=== PATIENT | male | born 1930 | race Caucasian/White ===

== ENCOUNTER 2018-02-15 13:34 | Observation (INO) | payer OTHER ==
[2018-02-15 15:05] LABS: Absolute Monocytes 1.3 K/uL (0.1-1.3); Absolute Neutrophil 12.9 K/uL (1.8-8.0); Basophils % 0.5 % (0-1.3); Eosinophils % 2.5 % (0-4.4); Hematocrit 35.6 % (39.6-49.0); MCH 32.3 pg (27.0-35.0); MCV 95.6 fL (80-100); MPV 9.2 fL (7.6-11.3); Monocytes % 7.5 % (3.3-12.3); RBC Red Blood Cell Count 3.72 M/uL (4.33-5.43)
--- NOTE | 2018-02-15 15:20 | RAD REPORT ---
EXAM DESCRIPTION: VAS - Extremity Venous Uni Ltd - 02/15/2018 2:34 pm CLINICAL HISTORY: Leg pain and swelling COMPARISON: None. TECHNIQUE: Real-time sonographic evaluation of the left lower extremity deep venous system was perfo rmed. FINDINGS: Normal compressibility, flow augmentation, phasic flow and spontaneous flow are identified in the left lower extremity common femoral, superficial femoral, popliteal and posterior tibial deep veins. No intraluminal filling defects seen. IMPRESSION: No DVT in the left lower extremity.
[2018-02-15] MEDS ORDERED: CLINDAMYCIN 900MG/D5W 900 MG/50 ML BAG IV ONE (15:22)
[2018-02-15] MEDS ORDERED: ACETAMINOPHEN 500 MG TAB ONE (15:22)
[2018-02-15 15:34] LABS: Albumin 3.3 g/dL (3.4-5.0); Bilirubin Direct 0.3 mg/dL (0-0.2); Bilirubin Total 1.1 mg/dL (0.2-1.0); Potassium 3.8 mmol/L (3.5-5.1); Protein, Total 6.9 g/dL (6.4-8.2)
--- NOTE | 2018-02-15 16:25 | EDPHYS ---
Physician Documentation [facility] Name: Paul Evangelista Age: 87 yrs Sex: Male : 1930 Arrival Date: 02/15/2018 Time: 13:38 Bed 8 Private MD: Sam Lacy V ED Physician Thomas Alvarenga HPI: 02/15 16:08 This 87 yrs old Male presents to ER via Wheelchair with complaints of wa Possible Blood Clot. 16:08 The patient presents with pain, that is acute, swelling, tenderness. The complaints wa affect the left lower leg. Context: The problem was sustained at home, denies injury. c/o redness, swelling, increased warmth, and pain. Onset: The symptoms/episode began/occurred 3 day(s) ago. Modifying factors: The symptoms are alleviated by nothing. the symptoms are aggravated by nothing. Associated signs and symptoms: Pertinent positives: swelling, warmth, of the left lower leg, below the calf level, Pertinent negatives calf tenderness, fever, nausea, numbness, rash, vomiting. Treatment prior to arrival includes: no previous treatment. Severity of symptoms: At their worst the symptoms were moderate, in the emergency department the symptoms are actually worse. The patient has not experienced similar symptoms in the past. The patient has not recently seen a physician, the patient's primary care provider is Dr. lacy. Historical: - Allergies: 14:11 Ciprofloxacin; ph - Home Meds: 14:11 tamsulosin 0.4 mg oral cp24 1 cap once daily [Active]; furosemide 80 mg Oral tab 1 tab ph once daily [Active]; metoprolol succinate 50 mg oral Tb24 1 tab once daily [Active]; spironolactone 25 mg Oral tab 0.5 tab once daily [Active]; calcitriol 0.5 mcg oral cap 1 cap once daily [Active]; clopidogrel 75 mg oral tab 1 tab once daily [Active]; simvastatin 20 mg Oral tab 1 tab once daily [Active]; Humalog Sub-Q [Active]; Lantus Sub-Q [Active]; - PMHx: 14:11 Diabetes - IDDM; CHF; Hypertension; ph - Immunization history:: Adult Immunizations up to date. - Social history:: Smoking status: Patient/guardian denies using tobacco. - Family history:: not pertinent. - Ebola Screening: : No symptoms or risks identified at this time. - Hospitalizations: : No recent hospitalization is reported. ROS: 16:11 Constitutional: Negative for fever, chills, and weight loss, Eyes: Negative for injury, wa pain, redness, and discharge, ENT: Negative for injury, pain, and discharge, Neck: Negative for injury, pain, and swelling, Cardiovascular: Negative for chest pain, palpitations, and edema, Respiratory: Negative for shortness of breath, cough, wheezing, and pleuritic chest pain, Abdomen/GI: Negative for abdominal pain, nausea, vomiting, diarrhea, and constipation, Back: Negative for injury and pain, : Negative for injury, bleeding, discharge, and swelling, Neuro: Negative for headache, weakness, numbness, tingling, and seizure, Psych: Negative for depression, anxiety, suicide ideation, homicidal ideation, and hallucinations. 16:11 MS/extremity: Positive for erythema, pain, swelling, tenderness, of the left lower leg , Negative for injury or acute deformity, ecchymosis. 16:11 Skin: Positive for erythema, swelling, of the left lower leg, below the calf. 16:11 All other systems are negative. Exam: 16:18 Constitutional: This is a well developed, well nourished patient who is awake, alert, wa and in no acute distress. Head/Face: Normocephalic, atraumatic. Eyes: Pupils equal round and reactive to light, extra-ocular motions intact. Lids and lashes normal. Conjunctiva and sclera are non-icteric and not injected. Cornea within normal limits. Periorbital areas with no swelling, redness, or edema. ENT: Nares patent. No nasal discharge, no septal abnormalities noted. Tympanic membranes are normal and external auditory canals are clear. Oropharynx with no redness, swelling, or masses, exudates, or evidence of obstruction, uvula midline. Mucous membranes moist. Neck: Trachea midline, no thyromegaly or masses palpated, and no cervical lymphadenopathy. Supple, full range of motion without nuchal rigidity, or vertebral point tenderness. No Meningismus. Chest/axilla: Normal chest wall appearance and motion. Nontender with no deformity. No lesions are appreciated. Cardiovascular: Regular rate and rhythm with a normal S1 and S2. No gallops, murmurs, or rubs. Normal PMI, no JVD. No pulse deficits. Respiratory: Lungs have equal breath sounds bilaterally, clear to auscultation and percussion. No rales, rhonchi or wheezes noted. No increased work of breathing, no retractions or nasal flaring. Abdomen/GI: Soft, non-tender, with normal bowel sounds. No distension or tympany. No guarding or rebound. No evidence of tenderness throughout. Back: No spinal tenderness. No costovertebral tenderness. Full range of motion. Neuro: Awake and alert, GCS 15, oriented to person, place, time, and situation. Cranial nerves II-XII grossly intact. Motor strength 5/5 in all extremities. Sensory grossly intact. Cerebellar exam normal. Normal gait. Psych: Awake, alert, with orientation to person, place and time. Behavior, mood, and affect are within normal limits. 16:18 Musculoskeletal/extremity: Extremities: grossly normal except: noted in the left lower leg, below the level of the calf: erythema, pain, swelling, tenderness. Vital Signs: 14:07 BP 158 / 64; Pulse 65; Resp 18; Temp 98.6; Pulse Ox 96% on R/A; Weight 90.72 kg; Height ph 5 ft. 9 in. (175.26 cm); 15:07 BP 160 / 44; Pulse 62; Resp 17; Pulse Ox 100% on R/A; dh3 16:01 BP 147 / 51; Pulse 56; Resp 15; Pulse Ox 97% on R/A; dh3 17:18 BP 144 / 83; Pulse 58; Resp 16; Pulse Ox 95% on R/A; sv 14:07 Body Mass Index 29.53 (90.72 kg, 175.26 cm) ph MDM: 14:24 Patient medically screened. wa 16:18 Differential diagnosis: symptoms consistent with cellulitis. will r/o DVT, although wa less likely. Data reviewed: vital signs, nurses notes, lab test result(s). Test interpretation: by ED physician or midlevel provider: labs noted for renal insufficiency, hyperglycemia. elevated wbc. Response to treatment: the patient's symptoms have mildly improved after treatment. Physician consultation: Sam Lacy MD was called at 16:23. Admission orders: after a detailed discussion of the patient's condition and case, the admit orders are written by me. 16:26 Special discussion: dr. Lacy advised rocephin instead of clindamycin. 02/15 14:24 Order name: Glucose, Ancillary Testing; Complete Time: 15:59 EDMS 02/15 14:47 Order name: Basic Metabolic Panel; Complete Time: 15:59 co 02/15 14:47 Order name: CBC with Diff; Complete Time: 15:59 co 02/15 14:47 Order name: Hepatic Function; Complete Time: 15:59 co 02/15 14:47 Order name: Urine Microscopic Only co 02/15 14:47 Order name: Blood Culture Adult (2) 02/15 14:20 Order name: US Extremity Venous Unilateral Ltd; Complete Time: 15:59 snw 02/15 16:37 Order name: Basic Metabolic Panel EDMS 02/15 16:37 Order name: Basic Metabolic Panel EDMS 02/15 16:37 Order name: CBC with Automated Diff EDMS 02/15 16:37 Order name: CBC with Automated Diff EDMS 02/15 14:47 Order name: IV Saline Lock; Complete Time: 14:51 co 02/15 14:47 Order name: Labs collected and sent; Complete Time: 14:51 co 02/15 16:37 Order name: Consistent Carb (ADA) 1800 Stas EDMS Administered Medications: 15:27 Drug: Tylenol 500 mg {Note: Pt wanted to take 1 tab at this time.} Route: PO; sv 15:28 Drug: Clindamycin 900 mg Route: IVPB; Infused Over: 30 mins; Site: right antecubital; sv 15:57 Follow up: Response: No adverse reaction; IV Status: Completed infusion; IV Intake: 50mlsv 16:31 CANCELLED (Duplicate Order): Rocephin - (cefTRIAXone) 1 grams IVPB once over 30 mins; sv (mix in 50 mL NS) 16:40 Drug: Rocephin 1 grams Route: IV; Rate: calculated rate; Site: right antecubital; sg 16:45 Follow up: Response: No adverse reaction; IV Status: Completed infusion; IV Intake: 10mlsv 16:45 Drug: Tylenol 500 mg Route: PO; sg 17:00 Follow up: Response: No adverse reaction sv Point of Care Testing: Blood Glucose: 14:22 Blood Glucose: 181 mg/dL; sv Ranges: Critical Glucose Levels:Adult <50 mg/dl or >400 mg/dl <40 mg/dl or >180 mg/dl Disposition: 02/15/18 16:25 Hospitalization ordered by Sam Lacy for Observation. Preliminary diagnosis is Acute Left Lower Extremity Cellulitis. - Bed requested for Telemetry/MedSurg (observation). - Status is Observation. sv - Condition is Stable. - Problem is new. - Symptoms have improved. UTI on Admission? No Signatures: Dispatcher [employer] EDMS Bisi Broussard RN RICK Ling Encarnacion RN RN Rogelio Pitts RN RN Charlene Zuniga RN RN [facility] CambridgeThomas clay MD MD co Corrections: (The following items were deleted from the chart) 16:31 16:25 Rocephin - (cefTRIAXone) 1 grams IVPB once over 30 mins; (mix in 50 mL NS) sv ordered. co 17:10 16:25 Hospitalization Ordered by Sam Lacy MD for Observation. Preliminary diagnosis dw is Acute Left Lower Extremity Cellulitis. Bed requested for Telemetry/MedSurg (observation). Status is Observation. Condition is Stable. Problem is new. Symptoms have improved. UTI on Admission? No. co 18:15 17:10 02/15/2018 16:25 Hospitalization Ordered by Sam Lacy MD for Observation. sv Preliminary diagnosis is Acute Left Lower Extremity Cellulitis. Bed requested for Telemetry/MedSurg (observation). Status is Observation. Condition is Stable. Problem is new. Symptoms have improved. UTI on Admission? No. dw
--- NOTE | 2018-02-15 16:25 | ER ---
Nurse's Notes [facility] Name: Paul Evangelista Age: 87 yrs Sex: Male : 1930 Arrival Date: 02/15/2018 Time: 13:38 Bed 8 Private MD: Sam Lacy V Diagnosis: Acute Left Lower Extremity Cellulitis Presentation: 02/15 14:04 Presenting complaint: states: " We are scared that he may have a blood clot. His ph leg is really red and painful." Pt reports pain to LLleg, redness and swelling noted to L lower leg, ankle, and foot, warm to touch, pt denies fever, SOB or chest pain, reports that symptoms began on Tuesday. Transition of care: patient was not received from another setting of care. Onset of symptoms was February 15, 2018. Risk Assessment: Do you want to hurt yourself or someone else? Patient reports no desire to harm self or others. Initial Sepsis Screen: Does the patient meet any 2 criteria? No. Patient's initial sepsis screen is negative. Care prior to arrival: None. 14:04 Method Of Arrival: Wheelchair ph 14:04 Acuity: NAVYA 3 ph 14:15 Initial Sepsis Screen: Does the patient have a suspected source of infection? Yes: Skin sv breakdown/wound. Historical: - Allergies: 14:11 Ciprofloxacin; ph - Home Meds: 14:11 tamsulosin 0.4 mg oral cp24 1 cap once daily [Active]; furosemide 80 mg Oral tab 1 tab ph once daily [Active]; metoprolol succinate 50 mg oral Tb24 1 tab once daily [Active]; spironolactone 25 mg Oral tab 0.5 tab once daily [Active]; calcitriol 0.5 mcg oral cap 1 cap once daily [Active]; clopidogrel 75 mg oral tab 1 tab once daily [Active]; simvastatin 20 mg Oral tab 1 tab once daily [Active]; Humalog Sub-Q [Active]; Lantus Sub-Q [Active]; - PMHx: 14:11 Diabetes - IDDM; CHF; Hypertension; ph - Immunization history:: Adult Immunizations up to date. - Social history:: Smoking status: Patient/guardian denies using tobacco. - Family history:: not pertinent. - Ebola Screening: : No symptoms or risks identified at this time. - Hospitalizations: : No recent hospitalization is reported. Screenin:15 Abuse screen: Denies threats or abuse. Denies injuries from another. Nutritional sv screening: No deficits noted. Tuberculosis screening: No symptoms or risk factors identified. Fall Risk None identified. Assessment: 14:15 General: Appears in no apparent distress. uncomfortable, Behavior is calm, cooperative, sv appropriate for age. Pain: Complains of pain in lateral aspect of left calf, left lateral ankle, lateral aspect of left foot, left calf, left Achilles, left heel, medial aspect of left calf, left medial ankle, medial aspect of left foot, left johnson, anterior aspect of left ankle and dorsum of left foot Pain currently is 8 out of 10 on a pain scale. Pain began 2-3 days ago. Is intermittent, Aggravated by touch. Neuro: Level of Consciousness is awake, alert, obeys commands, Oriented to person, place, time, situation, Moves all extremities. Full function Speech is normal. Respiratory: Respiratory effort is even, unlabored, Respiratory pattern is regular, symmetrical. Derm: Skin is normal, Redness noted to the LLE, pt reports that the redness has increased and the swelling has increased. Musculoskeletal: Range of motion: intact in all extremities, Swelling present in lateral aspect of right calf, right ankle, lateral aspect of right foot, right calf, right Achilles, right heel, medial aspect of right calf, medial aspect of right foot, right johnson, anterior aspect of right ankle, dorsum of right foot, lateral aspect of left calf, left lateral ankle, lateral aspect of left foot, left calf, left Achilles, left heel, medial aspect of left calf, left medial ankle, medial aspect of left foot, left johnson, anterior aspect of left ankle and dorsum of left foot. 15:27 Reassessment: Patient appears in no apparent distress at this time. Patient and/or sv family updated on plan of care and expected duration. Pain level reassessed. Patient is alert, oriented x 3, equal unlabored respirations, skin warm/dry/pink. 16:31 Reassessment: Patient appears in no apparent distress at this time. Patient and/or sv family updated on plan of care and expected duration. Pain level reassessed. Patient is alert, oriented x 3, equal unlabored respirations, skin warm/dry/pink. 17:18 Reassessment: Nurse to call back for report. sv 17:45 Reassessment: Patient appears in no apparent distress at this time. Patient and/or sv family updated on plan of care and expected duration. Pain level reassessed. Patient is alert, oriented x 3, equal unlabored respirations, skin warm/dry/pink. Vital Signs: 14:07 BP 158 / 64; Pulse 65; Resp 18; Temp 98.6; Pulse Ox 96% on R/A; Weight 90.72 kg; Height ph 5 ft. 9 in. (175.26 cm); 15:07 BP 160 / 44; Pulse 62; Resp 17; Pulse Ox 100% on R/A; dh3 16:01 BP 147 / 51; Pulse 56; Resp 15; Pulse Ox 97% on R/A; dh3 17:18 BP 144 / 83; Pulse 58; Resp 16; Pulse Ox 95% on R/A; sv 14:07 Body Mass Index 29.53 (90.72 kg, 175.26 cm) ph ED Course: 13:38 Patient arrived in ED. sb2 13:38 Sam Lacy MD is Private Physician. sb2 14:01 Bisi Broussard, RN is Primary Nurse. sv 14:05 Arm band placed on right wrist. sv 14:07 Triage completed. ph 14:08 Missed attempt(s): 20 gauge in right antecubital area. Bleeding controlled, band aid sv applied, catheter tip intact. 14:15 Patient has correct armband on for positive identification. Placed in gown. Bed in low sv position. Call light in reach. Side rails up X2. Adult w/ patient. manager monitoring on. Pulse ox on. NIBP on. Door closed. Head of bed elevated. 14:15 Initial lab(s) drawn, by me, sent to lab. Inserted saline lock: 20 gauge in right sv antecubital area, using aseptic technique. Blood collected. Flushed right antecubital with 5 ml normal saline. 14:24 Thomas Alvarenga MD is Attending Physician. wa 14:35 US Extremity Venous Unilateral Ltd In Process Unspecified. EDMS 15:00 Second set of blood cultures drawn by me, by venipuncture 23G to left ac. dh3 16:24 Sam Lacy MD is Hospitalizing Provider. wa 17:18 No provider procedures requiring assistance completed. Patient admitted, IV remains in sv place. intact. Administered Medications: 15:27 Drug: Tylenol 500 mg {Note: Pt wanted to take 1 tab at this time.} Route: PO; sv 15:28 Drug: Clindamycin 900 mg Route: IVPB; Infused Over: 30 mins; Site: right antecubital; sv 15:57 Follow up: Response: No adverse reaction; IV Status: Completed infusion; IV Intake: 50mlsv 16:31 CANCELLED (Duplicate Order): Rocephin - (cefTRIAXone) 1 grams IVPB once over 30 mins; sv (mix in 50 mL NS) 16:40 Drug: Rocephin 1 grams Route: IV; Rate: calculated rate; Site: right antecubital; sg 16:45 Follow up: Response: No adverse reaction; IV Status: Completed infusion; IV Intake: 10mlsv 16:45 Drug: Tylenol 500 mg Route: PO; sg 17:00 Follow up: Response: No adverse reaction sv Point of Care Testing: Blood Glucose: 14:22 Blood Glucose: 181 mg/dL; sv Ranges: Intake: 15:57 IV: 50ml; Total: 50ml. sv 16:45 IV: 10ml; Total: 60ml. sv Outcome: 16:25 Decision to Hospitalize by Provider. nh 17:44 Admitted to Med/surg accompanied by tech, family with patient, via wheelchair, room sv 428, with chart, Report called to Michelle CABRERA 17:44 Condition: stable 17:44 Instructed on the need for admit. 18:15 Patient left the ED. sv Signatures: Dispatcher [employer] Bisi Thacker RN RN Rogelio Pitts RN RN Charlene Zuniga RN RN Abril De La Rosa 3 Thomas Alvarenga MD MD wa Billeau, Sheri sb2 Corrections: (The following items were deleted from the chart) 16:46 16:45 Tylenol 1000 mg PO sg sg
--- NOTE | 2018-02-15 18:50 | P.HP ---
Certification for Inpatient Patient admitted to: Observation With expected LOS: <2 Midnights Practitioner: I am a practitioner with admitting privileges, knowledge of patient current condition, hospital course, and medical plan of care. Services: Services provided to patient in accordance with Admission requirements found in Title 42 Section 412.3 of the Code of Federal Regulations Patient History Date of Service: 02/15/18 Reason for admission: LEFT LEG SWELLING AND PAIN FOR TWO DAYS History of Present Illness: MR. YAN IS A DIABETIC WHO ENJOYS HIS FOOD, SAYING HE DOES NOT HAVE MUCH TO LIVE, HAS PVD BILAT, HISTORY OF DIABETIC FOOT, HISTORY OF CAD, HTN AND DJD, COMES WITH TWO DAYS OF ERYTHEMA AND PAIN OF L LEG. VENOUS DOPPLER IN ER IS NEGATIVE Allergies ciprofloxacin [From Cipro] Allergy (Verified 07/05/16 11:05) Hives Home Medications: Aspirin [Aspirin EC 81 MG] 81 mg PO DAILY 07/05/16 Bimatoprost [Lumigan Opthalmic Drops*] 1 gtt OPTH DAILY 07/05/16 Cholecalciferol (Vitamin D3) [Vitamin D 5,000 IU Cap*] 1 cap PO DAILY 07/05/16 Clopidogrel Bisulfate [Plavix*] 1 tab PO DAILY 07/05/16 Furosemide [Lasix] 80 mg PO DIRECTED 07/05/16 Insulin Aspart [Novolog Flexpen] 100 unit SQ DAILY PRN 07/05/16 Insulin Glargine Human [Lantus*] See Protocol SQ DAILY 07/05/16 Metoprolol Succinate [Toprol Xl] 25 mg PO DAILY 07/05/16 Multivit-Min/Iron Fum/Folic AC [Zcmwe-Pvgoyft-Cqjdynqb Tablet] 1 tab PO DAILY Simvastatin [Zocor] 20 mg PO BEDTIME 07/05/16 Tamsulosin [Flomax] 0.4 mg PO DAILY 07/05/16 - Past Medical/Surgical History Diabetic: Yes -: HTN IDDM -: Renal disease -: GERD -: Carotid stents -: Femoral stents -: Quadrupal Bipass -: spinal surgery -: Cataracts -: spinal surgery - Social History Alcohol use: Yes Review of Systems 10-point ROS is otherwise unremarkable Physical Examination - Vital Signs Temperature: 97.2 F Blood Pressure: 124/58 Pulse: 50 Respirations: 18 Pulse Ox (%): 93 - Physical Exam General: Alert, Mild distress HEENT: Atraumatic, PERRLA, Mucous membr. moist/pink, EOMI, Sclerae nonicteric Neck: Supple, 2+ carotid pulse no bruit, No LAD, Without JVD or thyroid abnormality Respiratory: Clear to auscultation bilaterally, Normal air movement Cardiovascular: Regular rate/rhythm, Normal S1 S2 Gastrointestinal: Normal bowel sounds, No tenderness Musculoskeletal: No tenderness Integumentary: Erythema, Warmth Neurological: Normal gait, Normal speech, Normal strength at 5/5 x4 extr, Normal tone, Normal affect Lymphatics: No axilla or inguinal lymphadenopathy - Studies Laboratory Data (last 24 hrs) 02/15/18 14:30: WBC 16.6 H, Hgb 12.0 L, Hct 35.6 L, Plt Count 172 02/15/18 14:30: Sodium 141, Potassium 3.8, BUN 50 H, Creatinine 2.30 H, Glucose 177 H, Total Bilirubin 1.1 H, AST 15, ALT 14, Alkaline Phosphatase 74 Assessment and Plan - Problems (Diagnosis) (1) Cellulitis, leg Current Visit: Yes Status: Acute Plan: ROCEPHIN IV STOP CLINDAMYCIN IT HAS 15% RISK OF C DIFF , HIGHEST IN ALL ABX. HE DOES NOT NEED CLINDAMYCIN FOR THIS INFECTION WILL WATCH DAILY. Qualifiers: Laterality: left Qualified Code(s): L03.116 - Cellulitis of left lower limb (2) Diabetic peripheral angiopathy Current Visit: Yes Status: Chronic Plan: HE HAS PVD BUT STABLE SO FAR IN THE PAST HE HAS HAD ULCER ON THE TOE. (3) Diabetes Current Visit: No Status: Acute Plan: A1C IS NOT GREATLY CONTROLLED HE DOES NOT WANT TO FOLLOW DIET. HE SAYS THERE IS NO LIFE WITHOUT GOOD FOOD AND KNOWS THAT HIS GLUCOSE WILL FLUCUTATE WITH HIGH CARB DIET . HE JUST WANTS TO ENJOY HIS LAST FEW YEARS. Qualifiers: Diabetes mellitus type: type 2 Diabetes mellitus mcfp insulin use: with mcfp use Chronic kidney disease stage: stage 3 (moderate) - Advance Directives Does patient have a Living Will: No Does patient have a Durable POA for Healthcare: No
[2018-02-15] MEDS ORDERED: CEFTRIAXONE 1 GM/NS 50 ML 50 ML IV SCH (21:00)
[2018-02-15] MEDS: CEFTRIAXONE/SWI 1gm 1 GM/10 ML SYR IV SCH (21:06)
[2018-02-15] MEDS ORDERED: D50W 25 GM/50 ML SYRINGE IV PRN (21:19)
[2018-02-15] MEDS ORDERED: GLUCAGON 1 MG/VIAL IM PRN (21:19)
[2018-02-15] MEDS: ACETAMINOPHEN 500 MG TAB PO PRN (23:01)
[2018-02-16 01:44] VITALS: BMI 29.5
[2018-02-16 06:08] LABS: Potassium 3.7 mmol/L (3.5-5.1)
[2018-02-16 06:18] LABS: Absolute Lymphocytes (CBC) 1.7 K/uL (0.7-4.9); Absolute Monocytes 0.9 K/uL (0.1-1.3); Absolute Neutrophil 8.5 K/uL (1.8-8.0); Basophils % 0.8 % (0-1.3); Eosinophils % 4.3 % (0-4.4); Hematocrit 33.2 % (39.6-49.0); Lymphocytes % 14.6 % (15.3-44.8); MCH 32.8 pg (27.0-35.0); MCV 95.2 fL (80-100); MPV 9.2 fL (7.6-11.3); Monocytes % 7.4 % (3.3-12.3); RBC Red Blood Cell Count 3.48 M/uL (4.33-5.43)
[2018-02-16] MEDS: ACETAMINOPHEN 500 MG TAB PO PRN (08:23)
[2018-02-16] MEDS: INSULIN -REGULAR HUMAN 50 UNIT/0.5 ML ML SQ SCH ×2 (08:24→12:26)
[2018-02-16] MEDS: CEFTRIAXONE/SWI 1gm 1 GM/10 ML SYR IV SCH (08:27)
[2018-02-16] MEDS ORDERED: FUROSEMIDE 80 MG PO SCH (09:00)
[2018-02-16] MEDS ORDERED: EYE LEFT EYE SCH (09:00)
[2018-02-16] MEDS ORDERED: CLOPIDOGREL BISULFATE 75 MG PO SCH ×2 (09:00→21:00)
[2018-02-16] MEDS ORDERED: METOPROLOL SUCCINATE 100 MG PO SCH ×2 (09:00→21:00)
[2018-02-16] MEDS ORDERED: Brimonidine Tartrate/Timolol (Combigan) 0.2%-0.5% Eye Drops EACH EYE SCH (09:00)
[2018-02-16] MEDS ORDERED: CHOLECALCIFEROL PO SCH (09:00)
[2018-02-16] MEDS ORDERED: DORZOLAMIDE 2% LEFT EYE SCH (09:00)
[2018-02-16 10:01] VITALS: O2SAT 94
[2018-02-16 16:15] VITALS: BP 185/62; TEMP 97.8
--- NOTE | 2018-02-16 18:12 | P.DS ---
Admission Date: 02/15/18 Discharge Date: 02/16/18 Discharge Condition: FAIR Reason for Admission: LEFT LEG SWELLING AND PAIN FOR TWO DAYS - Problems (1) Cellulitis, leg Onset Date: 02/16/18 Current Visit: Yes Status: Acute Qualifiers: Laterality: left Qualified Code(s): L03.116 - Cellulitis of left lower limb (2) Diabetic peripheral angiopathy Onset Date: 02/16/18 Current Visit: Yes Status: Chronic (3) Diabetes Current Visit: No Status: Acute Qualifiers: Diabetes mellitus type: type 2 Diabetes mellitus terminal supervisor insulin use: with senior care use Chronic kidney disease stage: stage 3 (moderate) Brief History of Present Illness: MR. YAN IS A DIABETIC WHO ENJOYS HIS FOOD, SAYING HE DOES NOT HAVE MUCH TO LIVE, HAS PVD BILAT, HISTORY OF DIABETIC FOOT, HISTORY OF CAD, HTN AND DJD, COMES WITH TWO DAYS OF ERYTHEMA AND PAIN OF L LEG. VENOUS DOPPLER IN ER IS NEGATIVE STABLE, DOING GREAT, LOT BETTER, DC HOME ON KEFLEX PO Vital Signs/Physical Exam: Temp Pulse Resp BP Pulse Ox 97.8 F 51 18 185/62 H 92 02/16/18 16:00 02/16/18 16:00 02/16/18 16:00 02/16/18 16:00 02/16/18 16:00 Laboratory Data at Discharge: WBC 11.7 K/uL (4.3-10.9) H D 02/16/18 05:40 Hgb 11.4 g/dL (13.6-17.9) L 02/16/18 05:40 Hct 33.2 % (39.6-49.0) L 02/16/18 05:40 Plt Count 168 K/uL (152-406) 02/16/18 05:40 Sodium 138 mmol/L (136-145) 02/16/18 05:40 Potassium 3.7 mmol/L (3.5-5.1) 02/16/18 05:40 BUN 55 mg/dL (7-18) H 02/16/18 05:40 Creatinine 2.60 mg/dL (0.55-1.3) H 02/16/18 05:40 Glucose 298 mg/dL (74-106) H 02/16/18 05:40 Total Bilirubin 1.1 mg/dL (0.2-1.0) H 02/15/18 14:30 AST 15 U/L (15-37) 02/15/18 14:30 ALT 14 U/L (12-78) 02/15/18 14:30 Alkaline Phosphatase 74 U/L (45-117) 02/15/18 14:30 Triglycerides 117 mg/dL (<150) 02/16/18 05:40 Cholesterol 78 mg/dL (<200) 02/16/18 05:40 HDL Cholesterol 24 mg/dL (40-60) L 02/16/18 05:40 Cholesterol/HDL Ratio 3.25 02/16/18 05:40 Home Medications: Antiox#10/Om3/Dha/Epa/Lut/Zeax [I-Caps with Lutein-Ladoga 3 Sfg] 1 cap PO DAILY 02/15/18 Aspirin [Aspir-Low] 81 mg PO DAILY 02/15/18 Bimatoprost [Lumigan Opthalmic Drops*] 1 drop EACH EYE BEDTIME 02/15/18 Brimonidine Tartrate/Timolol [Combigan 0.2%-0.5% Eye Drops] 1 drp EACH EYE BID 02/15/18 Calcitriol [Rocaltrol] 0.5 mcg PO SEECOM 02/15/18 Cholecalciferol (Vitamin D3) [Vitamin D3] 1 cap PO DAILY 02/15/18 Clopidogrel Bisulfate [Plavix*] 75 mg PO DAILY 02/15/18 Dorzolamide HCl/Pf [Dorzolamide 2% Eye Drop] 1 drop LEFT EYE BID 02/15/18 Furosemide [Lasix*] 80 mg PO DAILY 02/15/18 Insulin Glargine,Hum.rec.anlog [Lantus Solostar] See Protocol TID PRN 02/15/18 Insulin Lispro [Humalog] See Protocol TID 02/15/18 Metoprolol Succinate [Toprol Xl] 100 mg PO DAILY 02/15/18 Simvastatin 20 mg PO BEDTIME 02/15/18 Spironolactone [Aldactone] 12.5 mg PO DAILY 02/15/18 Tamsulosin [Flomax*] 0.4 mg PO DAILY 02/15/18 Cephalexin [Keflex] 500 mg PO Q6HR #28 cap 02/16/18 New Medications: Cephalexin [Keflex] 500 mg PO Q6HR #28 cap
[2018-02-16] MEDS ORDERED: [UNRECOGNIZED DRUG - OTHER] EACH EYE SCH (21:00)
[2018-02-17] MEDS ORDERED: INSULIN DETEMIR 100 UNIT/1 ML INSULIN SQ SCH (09:00)
== END 2018-02-16 17:56 | disposition home or self-care (01) ==
LOC: ER 13:34 → INTOOBSV 16:28 → ERHOLD 16:28 → 4TH 17:43
PROVIDERS: ADMIT Internal Medicine; ATTEND Internal Medicine
DX: L03.116 Cellulitis of left lower limb (principal); I12.9 Hypertensive chronic kidney disease with stage 1 through stage 4 chronic kidney disease, or unspecified chronic kidney disease; E11.22 Type 2 diabetes mellitus with diabetic chronic kidney disease; N18.3 Chronic kidney disease, stage 3 (moderate); E11.51 Type 2 diabetes mellitus with diabetic peripheral angiopathy without gangrene; I25.10 Atherosclerotic heart disease of native coronary artery without angina pectoris; Z79.4 Long term (current) use of insulin; Z79.82 Long term (current) use of aspirin; Z95.1 Presence of aortocoronary bypass graft
CPT/HCPCS: 36415 ×2; 80048 ×2; 80061; 80076; 82962 ×6; 83036; 85025 ×2; 87040 ×2; 93971; 96365; 96375; 99285; G0378 ×2; J0696 ×2

== ENCOUNTER 2018-03-23 15:02 | Observation (INO) | payer OTHER ==
[2018-03-23 16:57] LABS: Absolute Lymphocytes (CBC) 1.7 K/uL (0.7-4.9); Absolute Monocytes 0.8 K/uL (0.1-1.3); Absolute Neutrophil 7.2 K/uL (1.8-8.0); Basophils % 0.9 % (0-1.3); Eosinophils % 4.2 % (0-4.4); Lymphocytes % 16.7 % (15.3-44.8); MCH 32.4 pg (27.0-35.0); MCV 96.5 fL (80-100); Monocytes % 7.6 % (3.3-12.3); RBC Red Blood Cell Count 3.42 M/uL (4.33-5.43)
[2018-03-23] MEDS ORDERED: POLYETHYL GLY 3350 17 GM/DOSE PO PRN (17:00)
[2018-03-23] MEDS ORDERED: ONDANSETRON 4 MG/2 ML VIAL IV PRN (17:00)
[2018-03-23] MEDS ORDERED: ACETAMINOPHEN 325 MG TABLET PO PRN (17:00)
[2018-03-23] MEDS ORDERED: ENOXAPARIN 40 MG/0.4 ML SQ SCH (17:00)
[2018-03-23] MEDS ORDERED: ONDANSETRON 4 MG (ODT) TAB PO PRN (17:00)
[2018-03-23] MEDS ORDERED: PNEUMOCOCCAL VACCINE 0.5 ML IMVAC ONE (17:00)
[2018-03-23] MEDS ORDERED: LOPERAMIDE HCL 2 MG CAPSULE PO PRN (17:00)
[2018-03-23] MEDS ORDERED: DIPHENHYDRAMINE 25 MG TAB/CAP PO PRN (17:00)
[2018-03-23 17:11] LABS: Protime INR 1.03
[2018-03-23 17:38] LABS: Albumin 2.8 g/dL (3.4-5.0); Bilirubin Direct 0.2 mg/dL (0-0.2); Bilirubin Total 0.4 mg/dL (0.2-1.0); Phosphorus 3.4 mg/dL (2.5-4.9); Potassium 3.4 mmol/L (3.5-5.1); Protein, Total 6.8 g/dL (6.4-8.2); Thyroid Stimulating Hormone 0.96 uIU/mL (0.36-3.74)
--- NOTE | 2018-03-23 17:44 | RAD REPORT ---
EXAM DESCRIPTION: RAD - Chest Single View - 03/23/2018 5:29 pm CLINICAL HISTORY: Foot ulcer, cellulitis, pending debridement of wound COMPARISON: June 2009 TECHNIQUE: AP portable chest image was obtained 1707 hours . FINDINGS: No acute lung parenchymal process. Lung markings are similar to comparison, accentuated by the shallow inspiration exam. Acute failure or volume overload not suspected. Heart and vasculature are normal. No measurable pleural effusion and no pneumothorax. No gross bony abnormality seen. No ac [place] aortic findings suspected. IMPRESSION: No acute cardiopulmonary process. No significant change from comparison.
[2018-03-23] MEDS: NACHLORIDE 0.45% 1,000 ML IV SCH (18:26)
[2018-03-23 18:51] LABS: Urine Appearance CLEAR; Urine Bilirubin NEGATIVE (NEG); Urine Blood NEGATIVE (NEG); Urine Color YELLOW; Urine Glucose 1+ (NEG); Urine Protein NEGATIVE (NEG); Urine Specific Gravity 1.015 (1.005-1.030); Urine pH 6.5 (5.0-7.0)
[2018-03-23 19:02] LABS: Urine Microscopic Reflex NO UMIC
[2018-03-23 19:11] LABS: UR MICROALBUMIN 5.8 mg/dL (< 1.9)
[2018-03-23] MEDS ORDERED: D50W 25 GM/50 ML SYRINGE IV PRN (19:21)
[2018-03-23] MEDS ORDERED: GLUCAGON 1 MG/VIAL IM PRN (19:21)
--- NOTE | 2018-03-23 19:21 | RAD REPORT ---
EXAM DESCRIPTION: MRI - Foot Right Wo Cont - 03/23/2018 7:06 pm CLINICAL HISTORY: Cellulitis, diabetic foot ulcer plantar surface of the foot near the fifth digit COMPARISON: None. TECHNIQUE: Multiplanar imaging of the foot performed using T1 weighted, T2 fat saturation and T2 sti r sequencing. FINDINGS: The fifth metatarsal and phalanges of the fifth toe show no abnormal marrow signal charact eristics. There is a punctate area of increased T2 signal in the tuft of the distal phalanx fifth toe without a clear T1 signal correlate. Osteomyelitis cannot be diagnosed at this time. The first- fourth toes and the first- fifth metatarsals show no suspicious signal pattern. Soft tissue edema is seen in the foot including the plantar fifth metatarsal/toe region. No abscess o r drainable fluid collection. IMPRESSION: No osteomyelitis identifiable at this time. No abscess or drainable fluid collection in the soft tissues.
[2018-03-23] MEDS ORDERED: VANCOMYCIN/NS 1 gm 1 GM/250 ML BAG IV SCH (21:00)
[2018-03-23] MEDS: INSULIN -REGULAR HUMAN 50 UNIT/0.5 ML ML SQ SCH (21:41)
[2018-03-23] MEDS: METOPROLOL XL 100 MG TAB PO SCH (21:45)
[2018-03-23] MEDS: ATORVASTATIN 10 MG TAB PO SCH (22:52)
[2018-03-24 04:36] VITALS: BMI 30.9
[2018-03-24 05:41] LABS: Absolute Lymphocytes (CBC) 1.9 K/uL (0.7-4.9); Absolute Monocytes 0.9 K/uL (0.1-1.3); Absolute Neutrophil 6.4 K/uL (1.8-8.0); Basophils % 1.1 % (0-1.3); Eosinophils % 5.4 % (0-4.4); Hematocrit 31.6 % (39.6-49.0); Lymphocytes % 19.2 % (15.3-44.8); MCH 32.8 pg (27.0-35.0); MCV 95.1 fL (80-100); MPV 8.8 fL (7.6-11.3); Monocytes % 8.8 % (3.3-12.3); RBC Red Blood Cell Count 3.32 M/uL (4.33-5.43)
[2018-03-24 06:02] LABS: Magnesium 2.2 mg/dL (1.8-2.4); Potassium 3.4 mmol/L (3.5-5.1)
[2018-03-24] MEDS ORDERED: POTASSIUM 25 MEQ EFFERV TAB PO ONE (06:40)
--- NOTE | 2018-03-24 07:08 | EKG ---
Test Date: 2018-03-23 Test Time: 16:26:46 Plush Cutter: JERMAIN MEASUREMENT RESULTS: Intervals: Rate: 58 WI: 220 QRSD: 102 QT: 444 QTc: 435 [place]: P: 59 WI: 220 QRS: -25 T: 72 INTERPRETIVE STATEMENTS: Sinus bradycardia with 1st degree AV block Anterior infarct, age undetermined Abnormal ECG Compared to ECG 09/05/2008 02:52:37 First degree AV block now present Sinus rhythm no longer present Left-axis deviation no longer present ST (T wave) deviation no longer present Myocardial infarct finding still present Electronically Signed On 03-24-18 07:07:56 CDT by Jean Carlos Godinez
[2018-03-24] MEDS: INSULIN -REGULAR HUMAN 50 UNIT/0.5 ML ML SQ SCH ×4 (07:30→20:15)
--- NOTE | 2018-03-24 08:18 | RAD REPORT ---
EXAM DESCRIPTION: USEXTREMZAIRA VENOUS UNI LTD03/24/2018 8:05 am CLINICAL HISTORY: Right leg pain and swelling. COMPARISON: None. FINDINGS: Right common femoral, superficial femoral, popliteal and right posterior tibial veins are compressible and demonstrate augmentation. Doppler demonstrates good flow. IMPRESSION: No evidence of deep venous thrombosis involving the right lower extremity.
--- NOTE | 2018-03-24 08:25 | RAD REPORT ---
EXAM DESCRIPTION: RAD - Chest Single View - 03/24/2018 5:27 am CLINICAL HISTORY: Device placement PICC line placement COMPARISON: March 23, 2018 FINDINGS: A PICC line has been inserted with its tip in the mid superior vena cava. No other change is noted IMPRESSION: PICC line with its tip in the mid superior vena cava
[2018-03-24] MEDS: CLOPIDOGREL 75 MG TABLET PO SCH (08:58)
[2018-03-24] MEDS: LOSARTAN POTASSIUM 50 MG TABLET PO SCH (08:58)
[2018-03-24] MEDS: ASPIRIN EC 81 MG TAB PO SCH (08:58)
[2018-03-24] MEDS: TAMSULOSIN 0.4 MG SR CAP PO SCH (08:58)
[2018-03-24] MEDS: SPIRONOLACTONE 25 MG TABLET PO SCH (08:59)
[2018-03-24] MEDS: CALCITROL 0.25 MCG CAP PO SCH (08:59)
[2018-03-24] MEDS: FUROSEMIDE 40 MG TABLET PO SCH (08:59)
[2018-03-24] MEDS: ENOXAPARIN 30 MG/0.3 ML SQ SCH (09:00)
[2018-03-24] MEDS: CHOLECALCIFEROL PO SCH ×2 (09:00→09:18)
[2018-03-24] MEDS: Brimonidine Tartrate/Timolol (Combigan) 0.2%-0.5% Eye Drops EACH EYE SCH ×3 (09:00→20:16)
[2018-03-24] MEDS ORDERED: VANCOMYCIN 1.75 GM in NA CHLORIDE 0.9% 500 ML IV SCH (11:00)
--- NOTE | 2018-03-24 12:46 | P.DS ---
Admission Date: 03/23/18 Discharge Date: 03/24/18 Disposition: DC HOME/HOME HEALTH CARE Discharge Condition: FAIR Hospital Course: MR YAN HAS IMROVED SIGNIFICANTLY. HE HAS RENAL FAILURE. I CAN'T GIVE HIM BACTRIM DS. I WILL GIVE HIM LOW DOSE VANCOMYCIN AND HE WILL DO WELL. HE HAS POOR PROGNOSIS HE HAS SEVERE PVD, HE DOES NOT WANT TO FOLLOW DIET AND ALREADY HE IS SHOWING SIGNS OF PREGANGRENOUS ULCERS. Vital Signs/Physical Exam: Temp Pulse Resp BP Pulse Ox 97.5 F 50 18 147/81 H 97 03/24/18 11:57 03/24/18 11:57 03/24/18 11:57 03/24/18 11:57 03/24/18 11:57 Laboratory Data at Discharge: WBC 9.7 K/uL (4.3-10.9) 03/24/18 05:30 Hgb 10.9 g/dL (13.6-17.9) L 03/24/18 05:30 Hct 31.6 % (39.6-49.0) L 03/24/18 05:30 Plt Count 173 K/uL (152-406) 03/24/18 05:30 PT 12.1 SECONDS (9.5-12.5) 03/23/18 16:50 INR 1.03 03/23/18 16:50 APTT 33.7 SECONDS (24.3-36.9) 03/23/18 16:50 Sodium 143 mmol/L (136-145) 03/24/18 05:30 Potassium 3.4 mmol/L (3.5-5.1) L 03/24/18 05:30 BUN 51 mg/dL (7-18) H 03/24/18 05:30 Creatinine 1.90 mg/dL (0.55-1.3) H 03/24/18 05:30 Glucose 66 mg/dL (74-106) L 03/24/18 05:30 Phosphorus 3.4 mg/dL (2.5-4.9) 03/23/18 16:50 Magnesium 2.2 mg/dL (1.8-2.4) 03/24/18 05:30 Total Bilirubin 0.4 mg/dL (0.2-1.0) 03/23/18 16:50 AST 12 U/L (15-37) L 03/23/18 16:50 ALT 13 U/L (12-78) 03/23/18 16:50 Alkaline Phosphatase 67 U/L (45-117) 03/23/18 16:50 Home Medications: Aspirin [Aspir-Low] 81 mg PO DAILY 02/15/18 Bimatoprost [[place]umigan Opthalmic Drops*] 1 drop EACH EYE BEDTIME 02/15/18 Brimonidine Tartrate/Timolol [Combigan 0.2%-0.5% Eye Drops] 1 drp EACH EYE BID 02/15/18 Calcitriol [Rocaltrol] 0.5 mcg PO DAILY 02/15/18 Cholecalciferol (Vitamin D3) [Vitamin D3] 1 cap PO DAILY 02/15/18 Clopidogrel Bisulfate [Plavix*] 75 mg PO DAILY 02/15/18 Dorzolamide HCl/Pf [Dorzolamide 2% Eye Drop] 1 drop LEFT EYE BID 02/15/18 Furosemide [Lasix*] 80 mg PO DAILY 02/15/18 Metoprolol Succinate [Toprol Xl] 100 mg PO BEDTIME 02/15/18 Simvastatin 20 mg PO BEDTIME 02/15/18 Spironolactone [Aldactone] 25 mg PO DAILY 02/15/18 Tamsulosin [Flomax*] 0.4 mg PO DAILY 02/15/18 Patient Discharge Instructions: COME TO [facility] NEXT TUE OR TUESDAY. CALL [phone] TO MAKE APT. Diet: ADA
[2018-03-24] MEDS ORDERED: POTASSIUM CL SA 10 MEQ TAB PO ONE (14:00)
[2018-03-24] MEDS: ATORVASTATIN 10 MG TAB PO SCH (20:16)
[2018-03-24] MEDS: METOPROLOL XL 100 MG TAB PO SCH (20:16)
[2018-03-24] MEDS ORDERED: [UNRECOGNIZED DRUG - OTHER] EACH EYE SCH (21:00)
[2018-03-24 23:17] VITALS: O2SAT 94
[2018-03-25] MEDS: NACHLORIDE 0.45% 1,000 ML IV SCH (01:23)
[2018-03-25 05:49] LABS: Absolute Lymphocytes (CBC) 2.1 K/uL (0.7-4.9); Absolute Monocytes 0.9 K/uL (0.1-1.3); Absolute Neutrophil 6.9 K/uL (1.8-8.0); Basophils % 0.9 % (0-1.3); Hematocrit 32.3 % (39.6-49.0); Lymphocytes % 19.9 % (15.3-44.8); MCV 95.8 fL (80-100); Monocytes % 8.1 % (3.3-12.3); RBC Red Blood Cell Count 3.37 M/uL (4.33-5.43)
[2018-03-25 06:07] LABS: Magnesium 2.3 mg/dL (1.8-2.4); Potassium 4.2 mmol/L (3.5-5.1)
[2018-03-25] MEDS: INSULIN -REGULAR HUMAN 50 UNIT/0.5 ML ML SQ SCH ×2 (07:30→12:48)
[2018-03-25] MEDS: ENOXAPARIN 30 MG/0.3 ML SQ SCH (09:41)
[2018-03-25] MEDS: FUROSEMIDE 40 MG TABLET PO SCH (09:41)
[2018-03-25] MEDS: LOSARTAN POTASSIUM 50 MG TABLET PO SCH (09:42)
[2018-03-25] MEDS: TAMSULOSIN 0.4 MG SR CAP PO SCH (09:42)
[2018-03-25] MEDS: CALCITROL 0.25 MCG CAP PO SCH (09:42)
[2018-03-25] MEDS: ASPIRIN EC 81 MG TAB PO SCH (09:42)
[2018-03-25] MEDS: CLOPIDOGREL 75 MG TABLET PO SCH (09:42)
[2018-03-25] MEDS: SPIRONOLACTONE 25 MG TABLET PO SCH (09:42)
[2018-03-25] MEDS: CHOLECALCIFEROL PO SCH (09:42)
[2018-03-25] MEDS: Brimonidine Tartrate/Timolol (Combigan) 0.2%-0.5% Eye Drops EACH EYE SCH (09:43)
--- NOTE | 2018-03-25 10:29 | P.PN ---
Subjective Date of Service: 03/25/18 Chief Complaint: NO NEW FINDINGS Subjective: Improving (MR. YAN IS WAITING FOR OUR [employer] SPECIAL [employer]UCATION TEACHER TO ARRANGE FOR IV ABX. CHARGE NURSE IS NOT AWARE OF WHAT EXACTLY HAPPENDED AND THE DC GOT DELAYED. IT MAY BE AN INSURANCE ISSUE. HE IS STABLE TO GO HOME SINCE YESTERDAY. ) Review of Systems 10-point ROS is otherwise unremarkable Cardiovascular: Edema Physical Examination - Vital Signs Temperature: 97.1 F Blood Pressure: 177/73 Pulse: 58 Respirations: 16 Pulse Ox (%): 96 - Physical Exam General: Alert, In no apparent distress HEENT: Atraumatic, PERRLA, EOMI Neck: Supple, JVD not distended Respiratory: Clear to auscultation bilaterally, Normal air movement Cardiovascular: Regular rate/rhythm, Normal S1 S2 Gastrointestinal: Normal bowel sounds, No tenderness Musculoskeletal: Other (WALKER BOUND) Integumentary: No rashes Neurological: Normal speech, Normal tone, Normal affect Lymphatics: No axilla or inguinal lymphadenopathy - Studies Laboratory Data (last 24 hrs) 03/25/18 05:25: Sodium 140, Potassium 4.2, BUN 49 H, Creatinine 2.00 H, Glucose 174 H, Magnesium 2.3 03/25/18 05:25: WBC 10.4, Hgb 11.1 L, Hct 32.3 L, Plt Count 175 03/24/18 20:55: Potassium 4.4 03/24/18 12:55: Potassium 3.3 L Medications List Reviewed: Yes Assessment And Plan - Current Problems (Diagnosis) (1) Diabetic foot ulcer Onset Date: 03/24/18 Current Visit: Yes Status: Chronic Plan: WILL SEE HIM IN WOUND CENTER. Qualifiers: Diabetic foot ulcer location: midfoot (2) Cellulitis, leg Onset Date: 02/16/18 Current Visit: No Status: Acute Plan: IV VANCOMYCIN CHANGE TO Q48 HOURS TO GET BETTER CONTROL AT HOME. Qualifiers: Laterality: left Qualified Code(s): L03.116 - Cellulitis of left lower limb (3) Diabetic peripheral angiopathy Onset Date: 02/16/18 Current Visit: No Status: Chronic Plan: NOT SURGICAL HE IS 87 AND HAS RENAL DYSFUNCTION.
[2018-03-25] MEDS ORDERED: LOSARTAN POTASSIUM 50 MG TABLET PO SCH (11:00)
[2018-03-25 14:28] VITALS: BP 188/74; TEMP 97.5
== END 2018-03-25 15:52 | disposition home health service (06) ==
LOC: INTOOBSV 15:42 → 4TH 15:42
PROVIDERS: ADMIT Internal Medicine; ATTEND Internal Medicine
PROC: 02HV33Z Insertion of Infusion Device into Superior Vena Cava, Percutaneous Approach (ICD-10-PCS; principal; 2018-03-24)
DX: E11.621 Type 2 diabetes mellitus with foot ulcer (principal); L97.419 Non-pressure chronic ulcer of right heel and midfoot with unspecified severity; L03.115 Cellulitis of right lower limb; E11.51 Type 2 diabetes mellitus with diabetic peripheral angiopathy without gangrene; I25.10 Atherosclerotic heart disease of native coronary artery without angina pectoris; I10 Essential (primary) hypertension; I48.91 Unspecified atrial fibrillation; N19 Unspecified kidney failure
CPT/HCPCS: 36415 ×3; 36569; 71045 ×2; 73718; 80048 ×3; 80076; 80202; 81003; 82043; 82306; 82570; 82962 ×9; 83036; 83735 ×2; 84100; 84132 ×2; 84443; 85025 ×3; 85610; 85730; 87086; 87088; 93005; 93971; J1650 ×3; J3370; G0378; G0379

== ENCOUNTER 2018-10-25 12:54 | Inpatient (IN) | payer OTHER ==
--- OUTSIDE RECORDS SUMMARY | 2018-10-25 13:32 | XMS REPORT ---
:1930 Author Organization [facility] Address [address] [place] [address] Care Team Providers Name Role Phone Unavailable Unavailable Unavailable Problems This patient has no known problems. Allergies, Adverse Reactions, Alerts This patient has no known allergies or adverse reactions. Medications This patient has no known medications.
[2018-10-25] MEDS ORDERED: GLUCAGON 1 MG/VIAL IM PRN ×2 (14:15→20:25)
[2018-10-25] MEDS ORDERED: D50W 25 GM/50 ML SYRINGE IV PRN ×2 (14:15→20:25)
[2018-10-25] MEDS ORDERED: ACETAMINOPHEN 325 MG TABLET PO PRN (14:17)
[2018-10-25 14:57] LABS: Absolute Lymphocytes (CBC) 0.6 K/uL (0.7-4.9); Absolute Monocytes 0.6 K/uL (0.1-1.3); Absolute Neutrophil 10.5 K/uL (1.8-8.0); Basophils % 0.9 % (0-1.3); Eosinophils % 0.5 % (0-4.4); Hematocrit 27.5 % (39.6-49.0); MPV 8.4 fL (7.6-11.3); Monocytes % 5.1 % (3.3-12.3); RBC Red Blood Cell Count 2.88 M/uL (4.33-5.43)
[2018-10-25 14:58] LABS: Protime INR 1.23
[2018-10-25 15:03] LABS: Arterial Blood Carboxyhemoglob 2.3 % (0-1.5); Blood Gas Oxyhemoglobin 86.5 % (94-97); Blood O2 Saturation 88.9 % (92-98.5)
[2018-10-25 15:18] LABS: CKMB Creatine Kinase MB 1.7 ng/mL (0.3-3.6); Potassium 3.9 mmol/L (3.5-5.1); Troponin I 0.03 ng/mL (0.0-0.045)
[2018-10-25 15:29] LABS: Platelet Estimate ADEQ; Urine White Blood Cell Casts OK
[2018-10-25 15:30] LABS: Anisocytosis 1+; Blood Morphology Comment NOTED (NOT SEEN)
--- NOTE | 2018-10-25 15:42 | RAD REPORT ---
EXAM DESCRIPTION: Matthew Single View10/25/2018 2:59 pm CLINICAL HISTORY: Shortness of breath COMPARISON: March 2018 FINDINGS: Mild left lung opacities. Right lung appears clear of acute infiltrate The heart is mildly enlarged. Postsurgical changes involve the chest. IMPRESSION: Mild left lung opacities may indicate a mild pneumonia
[2018-10-25 16:15] LABS: Urine Appearance CLEAR; Urine Bilirubin NEGATIVE (NEG); Urine Blood 1+ (NEG); Urine Color YELLOW; Urine Glucose 3+ (NEG); Urine Protein 1+ (NEG); Urine Specific Gravity 1.015 (1.005-1.030); Urine pH 5.5 (5.0-7.0)
[2018-10-25 16:42] LABS: Urine Microscopic Reflex ORDER UMIC
[2018-10-25 16:46] LABS: Urine Bacteria <20 /HPF (NONE SEEN); Urine Culture Reflex Order REFLEXED; Urine RBC <5 /HPF (NONE SEEN)
[2018-10-25] MEDS: INSULIN -REGULAR HUMAN 50 UNIT/0.5 ML ML SQ SCH ×2 (16:47→21:56)
[2018-10-25] MEDS: Meropenem 500 MG in NA CHLORIDE 0.9% 100 ML IV SCH (16:48)
[2018-10-25] MEDS: ENOXAPARIN 30 MG/0.3 ML SQ SCH (16:48)
[2018-10-25] MEDS ORDERED: VANCOMYCIN 2.5 GM in NA CHLORIDE 0.9% 500 ML IVPB ONE (17:00)
--- NOTE | 2018-10-25 17:51 | P.HP ---
Certification for Inpatient Patient admitted to: Inpatient With expected LOS: >2 Midnights Practitioner: I am a practitioner with admitting privileges, knowledge of patient current condition, hospital course, and medical plan of care. Services: Services provided to patient in accordance with Admission requirements found in Title 42 Section 412.3 of the Code of Federal Regulations Patient History Date of Service: 10/25/18 Reason for admission: SHORT OF BREATH, CONFUSED History of Present Illness: MR. YAN COMES IN TO WOUND CENTER TODAY FOR HIS R FOOT. WE NOTED THAT HE WAS DYSPNEIC, SOMEWHAT CONFUSED, HAD LOW OXYGEN SATURATION OF 85%. I DID DIRECT ADMISSION WITH SUSPICION OF PNEUMONIA OR SEPSIS. HE IS PUT ON TWO ABX ALREADY. HE DENIES ANY CHEST PAIN. Allergies ciprofloxacin [From Cipro] Allergy (Verified 10/25/18 14:27) Hives Home Medications: Aspirin [Aspir-Low] 81 mg PO DAILY 02/15/18 Brimonidine Tartrate/Timolol [Combigan 0.2%-0.5% Eye Drops] 1 drp EACH EYE BID 02/15/18 Cholecalciferol (Vitamin D3) [Vitamin D3] 1 cap PO DAILY 02/15/18 Clopidogrel Bisulfate [Plavix*] 75 mg PO DAILY 02/15/18 Furosemide [Lasix*] 80 mg PO DAILY 02/15/18 Metoprolol Succinate [Toprol Xl] 100 mg PO BEDTIME 02/15/18 Simvastatin 20 mg PO BEDTIME 02/15/18 Tamsulosin [Flomax*] 0.4 mg PO DAILY 02/15/18 Brimonidine Tartrate/Timolol [Combigan 0.2%-0.5% Eye Drops] 1 gtt OPTH DAILY 12/17 Insulin Glargine,Hum.rec.anlog [Lantus Solostar] 1 unit SQ DAILY 10/03/18 Insulin Lispro [Humalog] 100 unit SQ DAILY 10/03/18 Multivitamin [Multivitamins] 1 tab PO DAILY 10/03/18 - Past Medical/Surgical History Has patient received pneumonia vaccine in the past: Yes Diabetic: Yes -: Diabetes- IDDM -: Renal disease -: GERD -: Carotid stents -: Femoral stents -: Quadrupal Bypass -: spinal surgery -: Cataracts -: HTN -: Right Foot Diabetic Ulcer -: spinal surgery -: Stents -: tonsil/adenoids - Family History Father -: Other (see notes) Notes: TB Mother -: Cancer Notes: Lymphoma - Social History Smoking Status: Former smoker Alcohol use: No CD- Drugs: No Caffeine use: Yes Place of Residence: Home Review of Systems 10-point ROS is otherwise unremarkable General: Weakness, Malaise Respiratory: Cough, Shortness of Breath Physical Examination - Vital Signs Temperature: 99.7 F Blood Pressure: 183/76 Pulse: 78 Respirations: 18 Pulse Ox (%): 97 - Physical Exam General: Alert, Oriented x2, Mild distress, Moderate distress HEENT: Atraumatic, PERRLA, Mucous membr. moist/pink, EOMI, Sclerae nonicteric Neck: Supple, 2+ carotid pulse no bruit, No LAD, Without JVD or thyroid abnormality Respiratory: Diminished Cardiovascular: Regular rate/rhythm, Normal S1 S2 Gastrointestinal: Normal bowel sounds, No tenderness Musculoskeletal: No tenderness Integumentary: No rashes Neurological: Normal gait, Normal speech, Normal strength at 5/5 x4 extr, Normal tone, Normal affect Lymphatics: No axilla or inguinal lymphadenopathy Other Physical/Emotional Findings: NO DEPRESSION, ANXIETY. - Studies Laboratory Data (last 24 hrs) 10/25/18 14:50: Sodium 138, Potassium 3.9, BUN 39 H, Creatinine 2.22 H, Glucose 364 H, Troponin I 0.03 10/25/18 14:50: PT 14.4 H, INR 1.23 10/25/18 14:50: WBC 11.9 H, Hgb 8.8 L, Hct 27.5 L, Plt Count 221 Assessment and Plan - Problems (Diagnosis) (1) Bacterial pneumonia Current Visit: Yes Status: Acute Plan: I GAVE HIM BROAD [employer] COVERAGE NOT KNOWING ABOUT CLEAR BACTERIA. WILL STOP VANCOMYCIN. RESUME MERREM. HE IS HIGH RISK FOR POOR PROGNOSIS. HE HAS TOLD ME IN THE PAST THAT HE HAS NO INTEREST IN CONTROLLING HIS DIET FOR DM HE IS 88 AND WANTS GO TO EATING NORMALLY AND NOT FOR DIABETICS. (2) Diabetes Current Visit: No Status: Acute Plan: ABOVE POOR CONTROL. UNDERSTADING IS POOR. (3) Diabetic foot ulcer Onset Date: 03/24/18 Current Visit: No Status: Chronic Plan: NOT CURABLE. HE HAS RENAL FAILURE AND OSTEOMEYLITIS. HE IS NOT A CANDIDATE FOR STENTS OR BYPASS. HE MAY GO TO LTAC IF FAMILY WISHES BUT EVEN THERE WE WILL NOT BE ABLE TO SAVE HIS LEG. I WILL OFFER THIS TO HIM . RESUME IV PAM. 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 - Advance Directives Does patient have a Living Will: No Does patient have a Durable POA for Healthcare: No
[2018-10-25] MEDS: METOPROLOL XL 50 MG TAB PO SCH (18:02)
[2018-10-25] MEDS ORDERED: INSULIN GLARGINE 100 UNITS/ML SQ SCH (21:00)
[2018-10-25 21:03] LABS: Troponin I 0.04 ng/mL (0.0-0.045)
[2018-10-26] MEDS: Meropenem 500 MG in NA CHLORIDE 0.9% 100 ML IV SCH ×3 (01:16→21:38)
[2018-10-26] MEDS: METOPROLOL XL 50 MG TAB PO SCH ×2 (05:42→17:44)
[2018-10-26] MEDS: PANTOPRAZOLE 40MG TABLET PO SCH (05:43)
[2018-10-26 07:16] LABS: CKMB Creatine Kinase MB 1.7 ng/mL (0.3-3.6); Troponin I 0.03 ng/mL (0.0-0.045)
[2018-10-26] MEDS: COLLAGENASE 30 GM OINTMENT TOP SCH ×2 (09:00→21:39)
[2018-10-26] MEDS: DORZOLAMIDE OPTH SCH ×2 (09:00→21:41)
[2018-10-26] MEDS ORDERED: COLLAGENASE 30 GM OINTMENT TOP SCH (09:00)
[2018-10-26] MEDS ORDERED: HOME MED 1 EA UNK (Insulin Glargine,Hum.Rec.Anlog [Lantus Solostar] 20 UNIT) SQ SCH (09:00)
[2018-10-26] MEDS ORDERED: HERBAL CMPLX PO SCH (09:00)
[2018-10-26] MEDS ORDERED: [UNRECOGNIZED DRUG - OTHER] PO SCH (09:00)
[2018-10-26] MEDS: Brimonidine Tartrate/Timolol [Combigan 0.2%-0.5%] Eye Drops OPTH SCH ×2 (09:00→21:40)
[2018-10-26] MEDS ORDERED: LUTEIN PO SCH (09:00)
[2018-10-26] MEDS ORDERED: ZEAXANTHIN PO SCH (09:00)
[2018-10-26] MEDS ORDERED: IRON PO SCH (09:00)
[2018-10-26] MEDS ORDERED: MV MN PO SCH (09:00)
[2018-10-26] MEDS: BIMATOPROST OPTH SCH ×2 (09:00→21:40)
[2018-10-26] MEDS: TAMSULOSIN 0.4 MG SR CAP PO SCH (09:50)
[2018-10-26] MEDS: CLOPIDOGREL 75 MG TABLET PO SCH (09:51)
[2018-10-26] MEDS: INSULIN -REGULAR HUMAN 50 UNIT/0.5 ML ML SQ SCH ×4 (09:52→21:40)
--- NOTE | 2018-10-26 10:49 | RAD REPORT ---
EXAM DESCRIPTION: NM - Vent Perfusion VQ Scan - 10/26/2018 10:37 am CLINICAL HISTORY: Shortness of breath COMPARISON: October 25, 2018 chest x-ray TECHNIQUE: 20.4 Mci [id number] was administered by inhalation. First breath, equilibrium, and washout images of the lungs obtained 7.5 millicuries Technetium-99 MAA was administered intravenously. Anterior, posterior, lateral and ob lique views of the lungs were taken. FINDINGS: Small areas of diminished radiotracer activity involving each lung relatively matched on v entilation and perfusion sequences. No mismatched lobar or segmental perfusion defects seen. IMPRESSION: Low probability for a pulmonary embolus
[2018-10-26 12:45] LABS: Absolute Lymphocytes (CBC) 0.8 K/uL (0.7-4.9); Absolute Monocytes 0.7 K/uL (0.1-1.3); Absolute Neutrophil 11.9 K/uL (1.8-8.0); Basophils % 0.5 % (0-1.3); Eosinophils % 0.2 % (0-4.4); Hematocrit 27.9 % (39.6-49.0); Lymphocytes % 5.7 % (15.3-44.8); Monocytes % 5.2 % (3.3-12.3); RBC Red Blood Cell Count 2.95 M/uL (4.33-5.43)
[2018-10-26 13:02] LABS: Potassium 4.1 mmol/L (3.5-5.1)
[2018-10-26 13:48] LABS: Anisocytosis 1+; Blood Morphology Comment NOTED (NOT SEEN); Hypochromasia 1+; Platelet Estimate ADEQ; Urine White Blood Cell Casts OK
[2018-10-26] MEDS: AMLODIPINE 5 MG TAB PO SCH (14:08)
[2018-10-26 14:42] LABS: CKMB Creatine Kinase MB 1.9 ng/mL (0.3-3.6); Troponin I 0.03 ng/mL (0.0-0.045)
[2018-10-26] MEDS: ENOXAPARIN 30 MG/0.3 ML SQ SCH (17:44)
[2018-10-26] MEDS ORDERED: INSULIN GLARGINE 100 UNITS/ML SQ SCH (21:00)
[2018-10-26] MEDS ORDERED: METOPROLOL XL 100 MG TAB PO SCH (21:00)
[2018-10-26] MEDS: INSULIN GLARGINE 100 UNITS/ML SQ SCH (21:00)
--- NOTE | 2018-10-26 21:02 | P.PN ---
Subjective Date of Service: 10/26/18 Chief Complaint: FATIGUE Subjective: Improving MR. YAN IS GETTING SOMEWHAT BETTER. HE HAS NO CHEST PAIN OR DYSPNEA. HE IS FATIGUED. Review of Systems 10-point ROS is otherwise unremarkable General: Weakness, Malaise Physical Examination - Vital Signs Temperature: 98.8 F Blood Pressure: 186/60 Pulse: 74 Respirations: 24 Pulse Ox (%): 97 - Physical Exam General: Alert, Oriented x3, Cooperative, Mild distress HEENT: Atraumatic, PERRLA, EOMI Neck: Supple, JVD not distended Respiratory: Clear to auscultation bilaterally, Normal air movement Cardiovascular: Regular rate/rhythm, Normal S1 S2 Gastrointestinal: Normal bowel sounds, No tenderness Musculoskeletal: No tenderness Integumentary: Diabetic ulcer (RIGHT FOOT ULCER 2-2 CM BUT WITH NECROTIC BASE.) Neurological: Normal speech, Normal tone, Normal affect Lymphatics: No axilla or inguinal lymphadenopathy Other Physical/Emotional Findings: NO DEPRESSION, ANXIETY. - Studies Laboratory Data (last 24 hrs) 10/26/18 12:30: Sodium 141, Potassium 4.1, BUN 41 H, Creatinine 2.34 H, Glucose 225 H 10/26/18 12:30: WBC 13.5 H, Hgb 9.0 L, Hct 27.9 L, Plt Count 257 10/26/18 12:30: Troponin I 0.03 10/26/18 06:36: Troponin I 0.03 10/25/18 20:35: Troponin I 0.04 Medications List Reviewed: Yes Assessment And Plan - Current Problems (Diagnosis) (1) Bacterial pneumonia Current Visit: Yes Status: Acute Plan: I GAVE HIM BROAD [employer] COVERAGE NOT KNOWING ABOUT CLEAR BACTERIA. WILL STOP VANCOMYCIN. RESUME MERREM. HE IS HIGH RISK FOR POOR PROGNOSIS. HE HAS TOLD ME IN THE PAST THAT HE HAS NO INTEREST IN CONTROLLING HIS DIET FOR DM HE IS 88 AND WANTS GO TO EATING NORMALLY AND NOT FOR DIABETICS. IMPROVED CLINICALLY. REPEAT CXR. (2) Diabetes Current Visit: No Status: Acute Plan: ABOVE POOR CONTROL. UNDERSTADING IS POOR. RAISE DOSE. Qualifiers: Diabetes mellitus type: type 2 Diabetes mellitus complication status: with circulatory complication Diabetes mellitus complication detail: with peripheral angiopathy without gangrene (3) Diabetic foot ulcer Onset Date: 03/24/18 Current Visit: No Status: Chronic Plan: NOT CURABLE. HE HAS RENAL FAILURE AND OSTEOMEYLITIS. HE IS NOT A CANDIDATE FOR STENTS OR BYPASS. HE MAY GO TO LTAC IF FAMILY WISHES BUT EVEN THERE WE WILL NOT BE ABLE TO SAVE HIS LEG. I WILL OFFER THIS TO HIM . RESUME IV MERREM. I TALKED TO PATIENT AND TODAY. I EXPLAINED THAT CHANCE OF IMPROVING THE ULCER ON R FOOT IS CLOSE TO ZERO. HE SHOULD GET AMPUATATION DONE. HE HAS DM, CKD, SEVERE PVD AND AGE AGAINST HIM. HE AGREES. HE CAN DO THIS AFTER HE IMPROVES REGARDING PNEUMONIA. 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 (5) Gram positive sepsis Current Visit: Yes Status: Acute Plan: I DECIDED NOT TO GIVE HIM BOLUS CLINICALLY HE WOULD HAVE GOTTEN WORSE WITH MAJOR FLUID OVERLOAD. HE HAS CKD IN ADDITION TO OLD AGE. (6) CKD stage 4 due to type 2 diabetes mellitus Current Visit: Yes Status: Acute Plan: HE IN THE PAST ABOUT 3 YEARS AGO TOLD ME THAT HE DOES NOT CARE ABOUT DM OR COMPLICATIONS. HE WANTED TO JUST EAT WHATEVER HE WANTS AND ENJOY HIS LAST FEW YEARS.
[2018-10-26] MEDS: ATORVASTATIN 10 MG TAB PO SCH (21:39)
[2018-10-27] MEDS: VANCOMYCIN 1.75 GM in NA CHLORIDE 0.9% 500 ML IVPB SCH (04:52)
[2018-10-27] MEDS: PANTOPRAZOLE 40MG TABLET PO SCH (05:48)
[2018-10-27] MEDS: METOPROLOL XL 50 MG TAB PO SCH ×2 (05:48→18:23)
--- NOTE | 2018-10-27 06:18 | EKG ---
Test Date: 2018-10-25 Test Time: 17:50:44 Manager Ent: JERMAIN MEASUREMENT RESULTS: Intervals: Rate: 74 NM: 190 QRSD: 106 QT: 434 QTc: 481 [place]: P: 37 NM: 190 QRS: 1 T: 73 INTERPRETIVE STATEMENTS: Normal sinus rhythm Possible Anterior infarct, age undetermined Abnormal ECG Compared to ECG 03/23/2018 16:26:46 Sinus bradycardia no longer present First degree AV block no longer present Myocardial infarct finding still present Electronically Signed On 10-27-18 06:17:48 CDT by Jean Carlos Godinez
[2018-10-27] MEDS: COLLAGENASE 30 GM OINTMENT TOP SCH (09:00)
[2018-10-27] MEDS: BIMATOPROST OPTH SCH ×2 (09:00→21:51)
[2018-10-27] MEDS: TAMSULOSIN 0.4 MG SR CAP PO SCH (09:07)
[2018-10-27] MEDS: CLOPIDOGREL 75 MG TABLET PO SCH (09:07)
[2018-10-27] MEDS: AMLODIPINE 5 MG TAB PO SCH (09:08)
[2018-10-27] MEDS: DORZOLAMIDE OPTH SCH ×2 (09:08→21:52)
[2018-10-27] MEDS: Brimonidine Tartrate/Timolol [Combigan 0.2%-0.5%] Eye Drops OPTH SCH ×2 (09:08→21:52)
[2018-10-27] MEDS: INSULIN GLARGINE 100 UNITS/ML SQ SCH ×2 (09:11→21:49)
[2018-10-27] MEDS: Meropenem 500 MG in NA CHLORIDE 0.9% 100 ML IV SCH ×2 (09:12→21:51)
[2018-10-27] MEDS: INSULIN -REGULAR HUMAN 50 UNIT/0.5 ML ML SQ SCH ×4 (09:12→21:48)
--- NOTE | 2018-10-27 13:37 | P.PN ---
Subjective Date of Service: 10/27/18 Chief Complaint: FATIGUE Subjective: Improving MR. YAN IS GETTING SOMEWHAT BETTER. HE HAS NO CHEST PAIN OR DYSPNEA. HE IS FATIGUED. HE HAS IMPROVED BUT STILL NOT BEFORE. Review of Systems 10-point ROS is otherwise unremarkable General: Weakness, Malaise Cardiovascular: As per HPI Physical Examination - Vital Signs Temperature: 97.5 F Blood Pressure: 171/61 Pulse: 65 Respirations: 28 Pulse Ox (%): 97 - Physical Exam General: Alert, Oriented x3, Mild distress HEENT: Atraumatic, PERRLA, EOMI Neck: Supple, JVD not distended Respiratory: Diminished Cardiovascular: Regular rate/rhythm, Normal S1 S2 Gastrointestinal: Normal bowel sounds, No tenderness Musculoskeletal: No tenderness Integumentary: No rashes Neurological: Normal speech, Normal tone, Normal affect Lymphatics: No axilla or inguinal lymphadenopathy Other Physical/Emotional Findings: NO DEPRESSION, ANXIETY. - Studies Laboratory Data (last 24 hrs) 10/26/18 12:30: Troponin I 0.03 Microbiology Data (last 24 hrs): 10/25/18 15:40 Clean Catch Urine [place] Count - Final <10,000 CFU/ML. 10/25/18 15:40 Clean Catch Urine - Final Medications List Reviewed: Yes Assessment And Plan - Current Problems (Diagnosis) (1) Bacterial pneumonia Current Visit: Yes Status: Acute Plan: I GAVE HIM BROAD [employer] COVERAGE NOT KNOWING ABOUT CLEAR BACTERIA. WILL STOP VANCOMYCIN. RESUME MERREM. HE IS HIGH RISK FOR POOR PROGNOSIS. HE HAS TOLD ME IN THE PAST THAT HE HAS NO INTEREST IN CONTROLLING HIS DIET FOR DM HE IS 88 AND WANTS GO TO EATING NORMALLY AND NOT FOR DIABETICS. IMPROVED CLINICALLY. REPEAT CXR. VANCOMYCIN TO CONTINUE. HE IS GROWING MRSA. (2) Diabetes Current Visit: No Status: Acute Plan: ABOVE POOR CONTROL. UNDERSTADING IS POOR. RAISE DOSE. Qualifiers: Diabetes mellitus type: type 2 Diabetes mellitus complication status: with circulatory complication Diabetes mellitus complication detail: with peripheral angiopathy without gangrene (3) Diabetic foot ulcer Onset Date: 03/24/18 Current Visit: No Status: Chronic Plan: NOT CURABLE. HE HAS RENAL FAILURE AND OSTEOMEYLITIS. HE IS NOT A CANDIDATE FOR STENTS OR BYPASS. HE MAY GO TO LTAC IF FAMILY WISHES BUT EVEN THERE WE WILL NOT BE ABLE TO SAVE HIS LEG. I WILL OFFER THIS TO HIM . RESUME IV MERREM. I TALKED TO PATIENT AND TODAY. I EXPLAINED THAT CHANCE OF IMPROVING THE ULCER ON R FOOT IS CLOSE TO ZERO. HE SHOULD GET AMPUATATION DONE. HE HAS DM, CKD, SEVERE PVD AND AGE AGAINST HIM. HE AGREES. HE CAN DO THIS AFTER HE IMPROVES REGARDING PNEUMONIA. MERREM TO CONTINUE HE HAS NECROTIC FOOT ULCER. I TALKED TO DR ROCA AND HE SAYS HE WILL NOT DO SURGERY UNTIL HE IS BETTER FROM PNEUMONIA [place] CLINICALLY HE IS BETTER. 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 (5) Gram positive sepsis Current Visit: Yes Status: Acute Plan: I DECIDED NOT TO GIVE HIM BOLUS CLINICALLY HE WOULD HAVE GOTTEN WORSE WITH MAJOR FLUID OVERLOAD. HE HAS CKD IN ADDITION TO OLD AGE. (6) CKD stage 4 due to type 2 diabetes mellitus Current Visit: Yes Status: Acute Plan: HE IN THE PAST ABOUT 3 YEARS AGO TOLD ME THAT HE DOES NOT CARE ABOUT DM OR COMPLICATIONS. HE WANTED TO JUST EAT WHATEVER HE WANTS AND ENJOY HIS LAST FEW YEARS.
[2018-10-27] MEDS: FUROSEMIDE 40 MG/4 ML VIAL IV SCH (14:19)
[2018-10-27] MEDS: AMLODIPINE 10 MG TAB PO SCH (14:23)
[2018-10-27] MEDS: ENOXAPARIN 30 MG/0.3 ML SQ SCH (18:22)
[2018-10-27] MEDS: DOXAZOSIN 4 MG TAB PO SCH (21:50)
[2018-10-27] MEDS: ATORVASTATIN 10 MG TAB PO SCH (21:52)
[2018-10-28] MEDS: PANTOPRAZOLE 40MG TABLET PO SCH (06:24)
[2018-10-28] MEDS: METOPROLOL XL 50 MG TAB PO SCH ×2 (06:24→17:27)
[2018-10-28] MEDS: INSULIN -REGULAR HUMAN 50 UNIT/0.5 ML ML SQ SCH ×4 (07:30→21:52)
[2018-10-28] MEDS: Meropenem 500 MG in NA CHLORIDE 0.9% 100 ML IV SCH ×2 (08:44→21:49)
[2018-10-28] MEDS: FUROSEMIDE 40 MG/4 ML VIAL IV SCH (08:44)
[2018-10-28] MEDS: AMLODIPINE 10 MG TAB PO SCH (08:46)
[2018-10-28] MEDS: CLOPIDOGREL 75 MG TABLET PO SCH (08:46)
[2018-10-28] MEDS: BIMATOPROST OPTH SCH ×2 (08:47→21:50)
[2018-10-28] MEDS: Brimonidine Tartrate/Timolol [Combigan 0.2%-0.5%] Eye Drops OPTH SCH ×2 (08:47→21:50)
[2018-10-28] MEDS: DORZOLAMIDE OPTH SCH ×2 (08:47→21:50)
[2018-10-28] MEDS: INSULIN GLARGINE 100 UNITS/ML SQ SCH ×2 (08:48→21:00)
[2018-10-28] MEDS: COLLAGENASE 30 GM OINTMENT TOP SCH (09:00)
--- NOTE | 2018-10-28 10:41 | P.PN ---
Subjective Date of Service: 10/28/18 Chief Complaint: WEAK, DIABETIC, GANGRENOUS FOOT Subjective: Worsening MR. YAN IS GETTING SOMEWHAT BETTER. HE HAS NO CHEST PAIN OR DYSPNEA. HE IS FATIGUED. HE HAS IMPROVED BUT STILL NOT BEFORE. HE IS STABLE BUT WEAK, SLEEPY. Review of Systems 10-point ROS is otherwise unremarkable General: Weakness, Malaise Integumentary: As per HPI Physical Examination - Vital Signs Temperature: 97.4 F Blood Pressure: 135/58 Pulse: 60 Respirations: 20 Pulse Ox (%): 98 - Physical Exam General: Alert, Mild distress, Obese HEENT: Atraumatic, PERRLA, EOMI Neck: Supple, JVD not distended Respiratory: Clear to auscultation bilaterally, Normal air movement Cardiovascular: Regular rate/rhythm, Normal S1 S2 Gastrointestinal: Normal bowel sounds, No tenderness Musculoskeletal: No tenderness Integumentary: No rashes, Diabetic ulcer (SOLE AND ALSO NOW ABSCESS IS EXTENDING TO THE DORSUM THAT IS NEW, TOTAL AREA OF FLUCTATION IS ABOUT 3 CM, WHOLE R LATERAL FOREFOOT IS INVOVLED.) Neurological: Normal speech, Normal tone, Normal affect Lymphatics: No axilla or inguinal lymphadenopathy Other Physical/Emotional Findings: NO DEPRESSION, ANXIETY. - Studies Microbiology Data (last 24 hrs): 10/26/18 05:45 Sputum Gram Stain - Final 10/26/18 05:45 Sputum Culture & Sensitivity - Final 10/25/18 14:50 Blood - Blood Aerobic Blood Culture - Final Meth Resistant Staph Aureus 10/25/18 14:50 Blood - Blood Gram Stain - Final 10/25/18 14:50 Blood - Blood Anaerobic Blood Culture - Final Meth Resistant Staph Aureus 10/25/18 14:50 Blood - Blood Gram Stain - Final 10/25/18 15:07 Blood - Blood Aerobic Blood Culture - Final Meth Resistant Staph Aureus 10/25/18 15:07 Blood - Blood Gram Stain - Final 10/25/18 15:07 Blood - Blood Anaerobic Blood Culture - Final Meth Resistant Staph Aureus 10/25/18 15:07 Blood - Blood Gram Stain - Final 10/25/18 15:40 Clean Catch Urine Mosby Count - Final <10,000 CFU/ML. 10/25/18 15:40 Clean Catch Urine - Final Medications List Reviewed: Yes Assessment And Plan - Current Problems (Diagnosis) (1) Bacterial pneumonia Current Visit: Yes Status: Acute Plan: I GAVE HIM BROAD [employer] COVERAGE NOT KNOWING ABOUT CLEAR BACTERIA. WILL STOP VANCOMYCIN. RESUME MERREM. HE IS HIGH RISK FOR POOR PROGNOSIS. HE HAS TOLD ME IN THE PAST THAT HE HAS NO INTEREST IN CONTROLLING HIS DIET FOR DM HE IS 88 AND WANTS GO TO EATING NORMALLY AND NOT FOR DIABETICS. IMPROVED CLINICALLY. REPEAT CXR. VANCOMYCIN TO CONTINUE. HE IS GROWING MRSA. CLINICALLY STABLE. (2) Diabetes Current Visit: No Status: Acute Plan: ABOVE POOR CONTROL. UNDERSTADING IS POOR. RAISE DOSE. Qualifiers: Diabetes mellitus type: type 2 Diabetes mellitus complication status: with circulatory complication Diabetes mellitus complication detail: with peripheral angiopathy without gangrene (3) Diabetic foot ulcer Onset Date: 03/24/18 Current Visit: No Status: Chronic Plan: NOT CURABLE. HE HAS RENAL FAILURE AND OSTEOMEYLITIS. HE IS NOT A CANDIDATE FOR STENTS OR BYPASS. HE MAY GO TO LTAC IF FAMILY WISHES BUT EVEN THERE WE WILL NOT BE ABLE TO SAVE HIS LEG. I WILL OFFER THIS TO HIM . RESUME IV MERREM. I TALKED TO PATIENT AND TODAY. I EXPLAINED THAT CHANCE OF IMPROVING THE ULCER ON R FOOT IS CLOSE TO ZERO. HE SHOULD GET AMPUATATION DONE. HE HAS DM, CKD, SEVERE PVD AND AGE AGAINST HIM. HE AGREES. HE CAN DO THIS AFTER HE IMPROVES REGARDING PNEUMONIA. MERREM TO CONTINUE HE HAS NECROTIC FOOT ULCER. I TALKED TO DR ROCA AND HE SAYS HE WILL NOT DO SURGERY UNTIL HE IS BETTER FROM [facility]UM[facility] CL[facility]IC[facility] HE IS BETTER. TODAY ULCER IS EXTENDING INTO A LARGE GANGRENOUS ABSCESS. I CALLED DR JEROME TO GET AMPUTATION DONE HE IS GETTING WORSE. FAMILY IS READY. I CALLED AGAIN. 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 (5) Gram positive sepsis Current Visit: Yes Status: Acute Plan: I DECIDED NOT TO GIVE HIM BOLUS CLINICALLY HE WOULD HAVE GOTTEN WORSE WITH MAJOR FLUID OVERLOAD. HE HAS CKD IN ADDITION TO OLD AGE. MRSA. SENSITIVE TO VANCOMYCIN. (6) CKD stage 4 due to type 2 diabetes mellitus Current Visit: Yes Status: Acute Plan: HE IN THE PAST ABOUT 3 YEARS AGO TOLD ME THAT HE DOES NOT CARE ABOUT DM OR COMPLICATIONS. HE WANTED TO JUST EAT WHATEVER HE WANTS AND ENJOY HIS LAST FEW YEARS.
[2018-10-28] MEDS: NACHLORIDE 0.45% 1,000 ML IV SCH (13:28)
[2018-10-28] MEDS: ENOXAPARIN 30 MG/0.3 ML SQ SCH (16:42)
[2018-10-28] MEDS: VANCOMYCIN 1.75 GM in NA CHLORIDE 0.9% 500 ML IVPB SCH ×2 (17:00→17:30)
--- NOTE | 2018-10-28 19:45 | CON ---
Date of Consultation: 10/28/2018 Brief History Of Present Illness: The patient is an 88-year-old male, who has a chronic ul cer of his right foot on the plantar aspect which is now eroded through full thickness to the dorsal aspect. It is purulent and draining large amount of pus from there. He has a history of osteomyelit is being treated with local wound care in the wound care center. However, the patient has significan t peripheral vascular disease and diabetes, which he has been noncompliant with diabetic care and the wound continues to worsen. He now has positive MRSA in his blood culture x2 and elevation of his wh ite count. He has an obvious bacteremia likely from this source. The patient does have a history of significant peripheral vascular disease and has been seen by vascular surgeon in [place] who by rep ort has done multiple interventions and stents up beyond the trifurcation from what the family dolores bes. He has had 3 vessel stents placed and revascularization with angioplasty to the same set vessel s with some holiness of flow, but continues to have poor blood supply in this area. 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 He also comes in with a low-grade pneum onia as confirmed by chest x-ray and been treated with antibiotics for the above-stated problems. Dr Estefany Lacy has consulted me to see the patient for discussion of an amputation of this right lower extre mity due to the above-stated problems. Past Medical History: Significant for benign hypertension, familial HDL deficiency, peripheral vascu lar disease, diabetes, pulmonary valve disease, diabetic peripheral vascular disease, cellulitis of t he extremities, uncontrolled diabetes, chronic kidney disease, coronary artery disease, atrial fibril lation. Past Surgical History: Vascular stents as described. He has had a quadruple bypass, CABG surgery, s pat surgery, cataracts, tonsillectomy and adenoidectomy. Allergies: TO CIPRO. Home Medications: Include aspirin, Combigan, vitamin D3, Plavix, Lasix, Toprol, simvastatin, Flomax, Lantus, Humalog, and multivitamins. Family History: Reviewed, noncontributory. He is a former smoker. Denies alcohol, recreational alok g use. Review of Systems: A 10-point review of systems other than HPI, he states he has pain shooting down the right leg below the knee predominantly, which occurs with weightbearing of any kind. It extends to below the knee. The level of the pain is improved with rest. Otherwise, he denies any other current symptoms. Physical Examination: Vital Signs: At the time of examination his BMI is 31.5. His blood pressure is 133/49, pulse is 54, respiratory rate 18, temperature 97.0. He is currently on 2 L nasal cannula with an oxygen saturati on of 95%. General: He is awake, alert, and oriented. Psychiatric: He is appropriate and conversive. HEENT: He is normocephalic. His sclerae are anicteric. His mucous membranes are moist. His oropha rynx is clear. Neck: Supple. There is no JVD. Respiratory: He is diminished bilaterally. Cardiovascular: Regular rate and rhythm. Normal S1, S2. GI: Soft, nontender. Musculoskeletal: He has swelling in bilateral lower extremities above the knee. Skin: He has a right foot plantar wound over the metatarsal head of the fifth metatarsal, extending to the plantar aspect as well, almost entirely full thickness with purulent discharge consistent with abscess. Neurologic: The patient is unable to stand due to pain. He has somewhat slow speech, but otherwise normal. There is no adenopathy evident. Extremities: Edema is greater than 2+ pitting edema. He has discoloration of approximately the mid lower extremity below the knee, approximately 5-6 cm below the knees bilaterally. The redness extend s to this level and skin changes are evident with scaling. Laboratory Exam: He had a laboratory exam which reveals a white blood cell count of 13.5, hemoglobin 9.0, hematocrit of 27.9, platelet count is 257, neutrophils are 88%. Sodium 141, potassium 4.1, chl oride is 108, carbon dioxide 27, BUN 41, creatinine 2.3. All these labs are from admission. Imaging included a chest x-ray and a lung V/Q scan. Lung V/Q scan showed low probability of pulmonary embolu s, He had a chest x-ray performed on 10/25 which was officially read as mild lung opacities may indic ate a mild pneumonia, particularly to the mild left lung. The right lung appears clear of acute infi ltrate. Postsurgical changes are evident involving the chest. The patient additionally on previous admission on 10/18/2018, had a foot MRI, which was officially read as osteomyelitis of the fifth meta tarsal and fifth proximal phalanx performed from 10/18/2018. He had an extremity venous study from 03/24/2018, which was officially read as no evidence of DVT involving the right lower extremity at maru t time. Assessment And Plan: This is an 88-year-old male with multiple medical problems who comes in with os teomyelitis and obvious Methicillin-resistant Staphylococcus aureus infection of the right foot on e fifth metatarsal area and pain of a chronic nature which has been exacerbated as of late. 1.Continue medical management per Dr. Lacy. 2.Medical optimization with clearance of pulmonary and cardiac type prior to any surgical interventi on. 3.Continue antibiotic coverage for Methicillin-resistant Staphylococcus aureus per Dr. Lacy. 4.I have explained the risks, benefits, and alternatives of a [id number] amputation to the right foot versus local wound care and local debridement. I have explained that I will get an SRAVAN as well as vascular ultrasound to better define the anatomy. However, based on my clinical impression, I fe el that he would be unlikely to benefit from a local drainage procedure and debridement due to his po or peripheral vascular disease in combination with the uncontrolled diabetes and noncompliance. Justo tionally, patient is ambulatory and states he would wish to continue to be ambulatory despite recomme ndations to be in a not-weightbearing status should he be able to maintain his foot and he states he was noncompliant with wound care instructions. However, he states that should he receive a below-the -knee amputation, he obviously would be unable to be ambulatory anymore and he has decided that this sounds like a reasonable plan for him as it will help reduce the infection in his foot and have a hig her chance of healing due to his peripheral vascular disease and diabetes. I have also explained maru t he has a high risk for other complications such as infection, bleeding, damage to surrounding tissu es, need for further operation and procedures, stroke, blood clots, heart attack and anesthesia probl ems and he has stated with his family that they agree to proceed and will consider surgery this eveni ng. We will make him n.p.o. after midnight in preparation after I consult with Dr. Lacy. Thank you for this interesting consult. TK/DALTON Voice ID: [id number] Report ID: [id number]
--- NOTE | 2018-10-28 20:48 | RAD REPORT ---
EXAM DESCRIPTION: US - Extremity Venous Uni Ltd - 10/28/2018 8:43 pm CLINICAL HISTORY: Duplex arterial and venous ultrasound RIGHT LEG Leg swelling and edema. COMPARISON: Extremity Venous Uni Ltd dated 03/24/2018 FINDINGS: Right lower extremity venous system was interrogated with Doppler technique. Normal flow, compressibility and augmentation was noted. There is no DVT present. IMPRESSION: No evidence of right lower extremity deep venous thrombosis.
--- NOTE | 2018-10-28 20:50 | RAD REPORT ---
EXAM DESCRIPTION: US - Lower Extremity Artery [facility] Ltd - 10/28/2018 8:43 pm CLINICAL HISTORY: LOW WAVEFORM F/U Leg pain and swelling COMPARISON: LOW EXT ARTERIAL BILATERAL dated 09/15/2008 FINDINGS: Grayscale, color, power and spectral Doppler was performed of the right lower extremity ar terial system. The right common femoral artery is triphasic. The right superficial femoral artery is biphasic. The right popliteal artery, posterior tibial artery and dorsalis pedis artery are monophasic. No occl usion is seen. IMPRESSION: Moderate peripheral vascular disease is noted involving the right popliteal artery and d istal. This may indicate inflow stenosis in the region of the distal right SFA.
[2018-10-28] MEDS: DOXAZOSIN 4 MG TAB PO SCH (21:49)
[2018-10-28] MEDS: ATORVASTATIN 10 MG TAB PO SCH (21:50)
[2018-10-29 05:23] VITALS: BMI 32.9
[2018-10-29] MEDS: METOPROLOL XL 50 MG TAB PO SCH ×2 (05:28→17:52)
[2018-10-29] MEDS: PANTOPRAZOLE 40MG TABLET PO SCH (05:28)
[2018-10-29 05:56] LABS: Potassium 4.2 mmol/L (3.5-5.1)
[2018-10-29] MEDS: VANCOMYCIN 1.75 GM in NA CHLORIDE 0.9% 500 ML IVPB SCH (06:05)
[2018-10-29] MEDS: INSULIN -REGULAR HUMAN 50 UNIT/0.5 ML ML SQ SCH ×4 (07:30→21:00)
[2018-10-29 08:19] LABS: Protime INR 1.09
[2018-10-29 08:20] LABS: Absolute Lymphocytes (CBC) 0.6 K/uL (0.7-4.9); Absolute Monocytes 0.3 K/uL (0.1-1.3); Absolute Neutrophil 4.9 K/uL (1.8-8.0); Basophils % 1.9 % (0-1.3); Eosinophils % 6.1 % (0-4.4); Hematocrit 26.1 % (39.6-49.0); Lymphocytes % 10.1 % (15.3-44.8); Monocytes % 5.2 % (3.3-12.3)
[2018-10-29] MEDS: INSULIN GLARGINE 100 UNITS/ML SQ SCH ×2 (09:00→21:00)
[2018-10-29] MEDS: CLOPIDOGREL 75 MG TABLET PO SCH (09:00)
[2018-10-29] MEDS: BIMATOPROST OPTH SCH ×3 (09:00→21:56)
[2018-10-29] MEDS: AMLODIPINE 10 MG TAB PO SCH (09:00)
[2018-10-29] MEDS: COLLAGENASE 30 GM OINTMENT TOP SCH (09:00)
--- NOTE | 2018-10-29 09:17 | P.PN ---
Subjective Date of Service: 10/29/18 Chief Complaint: WEAK, DIABETIC, GANGRENOUS FOOT Patient symptoms unchanged, no pain while in bed and non-weight bearing, feels generally well otherwise Physical Examination - Vital Signs Temperature: 97.0 F Blood Pressure: 134/52 Pulse: 53 Respirations: 24 Pulse Ox (%): 95 - Physical Exam General: Alert, Cooperative Musculoskeletal: Other (RIGHT foot cellulitis and wound remain unchanged) Other Physical/Emotional Findings: NO DEPRESSION, ANXIETY. - Studies Laboratory Data (last 24 hrs) 10/29/18 07:50: PT 12.8 H, INR 1.09 10/29/18 07:50: WBC 6.4 D, Hgb 8.3 L, Hct 26.1 L, Plt Count 200 D 10/29/18 04:33: Sodium 142, Potassium 4.2, BUN 74 H D, Creatinine 3.31 H, Glucose 232 H 10/28/18 16:06: Creatinine 3.18 H Microbiology Data (last 24 hrs): 10/26/18 05:45 Sputum Gram Stain - Final 10/26/18 05:45 Sputum Culture & Sensitivity - Final 10/25/18 14:50 Blood - Blood Aerobic Blood Culture - Final Meth Resistant Staph Aureus 10/25/18 14:50 Blood - Blood Gram Stain - Final 10/25/18 14:50 Blood - Blood Anaerobic Blood Culture - Final Meth Resistant Staph Aureus 10/25/18 14:50 Blood - Blood Gram Stain - Final 10/25/18 15:07 Blood - Blood Aerobic Blood Culture - Final Meth Resistant Staph Aureus 10/25/18 15:07 Blood - Blood Gram Stain - Final 10/25/18 15:07 Blood - Blood Anaerobic Blood Culture - Final Meth Resistant Staph Aureus 10/25/18 15:07 Blood - Blood Gram Stain - Final Medications List Reviewed: Yes Assessment And Plan - Plan - Await dictating transcribing machine servicer evaluation and risk stratification for surgery - Patient may get spinal anesthesia per anesthesiologist recommendations - Plan for BKA of RIGHT leg - continue medical management per
[2018-10-29] MEDS: Meropenem 500 MG in NA CHLORIDE 0.9% 100 ML IV SCH ×2 (09:33→21:53)
[2018-10-29] MEDS: Brimonidine Tartrate/Timolol [Combigan 0.2%-0.5%] Eye Drops OPTH SCH ×2 (09:33→21:56)
[2018-10-29] MEDS: DORZOLAMIDE OPTH SCH ×2 (09:34→21:56)
[2018-10-29] MEDS: FUROSEMIDE 40 MG/4 ML VIAL IV SCH (09:35)
[2018-10-29] MEDS: NACHLORIDE 0.45% 1,000 ML IV SCH (09:37)
[2018-10-29] MEDS ORDERED: NA CHLORIDE 0.9% 1,000 ML ONE (12:13)
[2018-10-29] MEDS ORDERED: SUCCINYLCHOLINE 20 MG/ML (10 ML) IV ONE (12:37)
[2018-10-29] MEDS ORDERED: PROPOFOL 200 MG/20 ML VIAL IV ONE (12:45)
[2018-10-29] MEDS ORDERED: FENTANYL CITR 100 MCG/2 ML ONE (12:45)
[2018-10-29] MEDS ORDERED: ROCURONIUM 50 MG/5 ML VIAL IV ONE (12:45)
[2018-10-29] MEDS ORDERED: Phenylephrine HCl 10 MG/ML 1 ML VIAL ONE (12:46)
[2018-10-29] MEDS ORDERED: NEOSTIGMINE 1 MG/ML -10 ML VIAL ONE (12:46)
[2018-10-29] MEDS ORDERED: GLYCOPYRROLATE 0.2 MG/ML SYR ONE (12:46)
--- NOTE | 2018-10-29 14:03 | P.PN ---
Subjective Date of Service: 10/29/18 Chief Complaint: WEAK, DIABETIC, GANGRENOUS FOOT MR. YAN IS GETTING SOMEWHAT BETTER. HE HAS NO CHEST PAIN OR DYSPNEA. HE IS FATIGUED. HE HAS IMPROVED BUT STILL NOT BEFORE. HE IS STABLE BUT WEAK, SLEEPY. I SAW HIM TODAY IN OR. PREPARING FOR SURGERY, R CYNTHIA. HE IS HIGH RISK BUT FAMILY KNOWS AND HE KNOWS THAT HE HAS TO TAKE A RISK HIS FOOT HAS WET GANGRENE AND MAY GET RAPIDLY WORSE. Review of Systems 10-point ROS is otherwise unremarkable General: Weakness, Malaise Physical Examination - Vital Signs Temperature: 97.2 F Blood Pressure: 123/51 Pulse: 54 Respirations: 20 Pulse Ox (%): 98 - Physical Exam General: Mild distress HEENT: Atraumatic, PERRLA, EOMI Neck: Supple, JVD not distended Respiratory: Clear to auscultation bilaterally, Normal air movement Cardiovascular: Regular rate/rhythm, Normal S1 S2 Gastrointestinal: Normal bowel sounds, No tenderness Musculoskeletal: No tenderness Integumentary: Diabetic ulcer Neurological: Normal speech, Normal tone, Normal affect Lymphatics: No axilla or inguinal lymphadenopathy Other Physical/Emotional Findings: NO DEPRESSION, ANXIETY. - Studies Laboratory Data (last 24 hrs) 10/29/18 07:50: PT 12.8 H, INR 1.09 10/29/18 07:50: WBC 6.4 D, Hgb 8.3 L, Hct 26.1 L, Plt Count 200 D 10/29/18 04:33: Sodium 142, Potassium 4.2, BUN 74 H D, Creatinine 3.31 H, Glucose 232 H 10/28/18 16:06: Creatinine 3.18 H Microbiology Data (last 24 hrs): 10/26/18 05:45 Sputum Gram Stain - Final 10/26/18 05:45 Sputum Culture & Sensitivity - Final Medications List Reviewed: Yes Assessment And Plan - Current Problems (Diagnosis) (1) Bacterial pneumonia Current Visit: Yes Status: Acute Plan: I GAVE HIM BROAD [employer] COVERAGE NOT KNOWING ABOUT CLEAR BACTERIA. WILL STOP VANCOMYCIN. RESUME MERREM. HE IS HIGH RISK FOR POOR PROGNOSIS. HE HAS TOLD ME IN THE PAST THAT HE HAS NO INTEREST IN CONTROLLING HIS DIET FOR DM HE IS 88 AND WANTS GO TO EATING NORMALLY AND NOT FOR DIABETICS. IMPROVED CLINICALLY. REPEAT CXR. VANCOMYCIN TO CONTINUE. HE IS GROWING MRSA. CLINICALLY STABLE. (2) Diabetes Current Visit: No Status: Acute Plan: ABOVE POOR CONTROL. UNDERSTADING IS POOR. RAISE DOSE. Qualifiers: Diabetes mellitus type: type 2 Diabetes mellitus complication status: with circulatory complication Diabetes mellitus complication detail: with peripheral angiopathy without gangrene (3) Diabetic foot ulcer Onset Date: 03/24/18 Current Visit: No Status: Chronic Plan: NOT CURABLE. HE HAS RENAL FAILURE AND OSTEOMEYLITIS. HE IS NOT A CANDIDATE FOR STENTS OR BYPASS. HE MAY GO TO LTAC IF FAMILY WISHES BUT EVEN THERE WE WILL NOT BE ABLE TO SAVE HIS LEG. I WILL OFFER THIS TO HIM . RESUME IV MERREM. I TALKED TO PATIENT AND TODAY. I EXPLAINED THAT CHANCE OF IMPROVING THE ULCER ON R FOOT IS CLOSE TO ZERO. HE SHOULD GET AMPUATATION DONE. HE HAS DM, CKD, SEVERE PVD AND AGE AGAINST HIM. HE AGREES. HE CAN DO THIS AFTER HE IMPROVES REGARDING PNEUMONIA. MERREM TO CONTINUE HE HAS NECROTIC FOOT ULCER. I TALKED TO DR ROCA AND HE SAYS HE WILL NOT DO SURGERY UNTIL HE IS BETTER FROM [facility]UM[facility] CLINICALLY HE IS BETTER. TODAY ULCER IS EXTENDING INTO A LARGE GANGRENOUS ABSCESS. I CALLED DR JEROME TO GET AMPUTATION DONE HE IS GETTING WORSE. FAMILY IS READY. I CALLED AGAIN. IN HPI SURGERY IS URGENT AND MUST BE DONE. 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 (5) Gram positive sepsis Current Visit: Yes Status: Acute Plan: I DECIDED NOT TO GIVE HIM BOLUS CLINICALLY HE WOULD HAVE GOTTEN WORSE WITH MAJOR FLUID OVERLOAD. HE HAS CKD IN ADDITION TO OLD AGE. MRSA. SENSITIVE TO VANCOMYCIN. (6) CKD stage 4 due to type 2 diabetes mellitus Current Visit: Yes Status: Acute Plan: HE IN THE PAST ABOUT 3 YEARS AGO TOLD ME THAT HE DOES NOT CARE ABOUT DM OR COMPLICATIONS. HE WANTED TO JUST EAT WHATEVER HE WANTS AND ENJOY HIS LAST FEW YEARS.
--- NOTE | 2018-10-29 15:09 | P.OP ---
Preoperative diagnosis: Right Leg Ischemia, acute on chronic foot wound Postoperative diagnosis: Right Leg Ischemia, acute on chronic foot wound Primary procedure: RIGHT Below the Knee Amputation Anesthesia: GETA Estimated blood loss: <100cc Specimen: Foot, Soleus Muscle Findings: Ischemia to distal muscle groups, calcified arteries Complications: None Drain(s): Other ([place] /") Transferred to: Recovery Room Condition: Good
[2018-10-29] MEDS: HYDROCODONE/APAP 7.5/325 MG TAB PO PRN (16:27)
--- NOTE | 2018-10-29 16:48 | CON ---
Reason For Consultation: Preop evaluation for foot amputation. History Of Present Illness: Mr. Evangelista is an 88-year-old man, who has had an extensive past medical h istory that includes coronary artery bypass surgery, stents after the bypass surgery, other vascular disease. He has a wound on his right foot. He has been followed in the Wound Clinic, was admitted t o the hospital with confusion, worsening suppuration in the wound, and the diagnosis was septicemia p robably from the foot causing mental decline. The patient has a history of obesity, coronary heart d isease, peripheral vascular disease, diabetes, hypertension, dyslipidemia, glaucoma. He is allergic to ciprofloxacin. No tobacco use now, but did smoke in the remote past. Physical Examination: Vital Signs: 5 feet 9 inches, 223 pounds. General: Obese, alert. He is oriented to person, place, and time. His family states his mental sta tus is much clearer today since he has had antibiotics overnight. I believe he has been getting sanjuanita penem overnight. I am not sure we know all the organisms causing infection, but he is getting merope nem and vancomycin in addition to his usual medications outpatient medications. Lungs: Clear. Heart: Does not reveal a gallop or significant murmur. Abdomen: Soft. Extremities: Bilateral discoloration and edema, but it is much worse on the right. Wound is deep, y ellow exudate, looks infected. Other studies would indicate that his wound is very infected. Studies: Doppler study of the arteries reveals diffuse small-vessel vascular disease as we see in di abetics. The large arteries that we could operate on are in fairly good shape. It is microvascular disease. His electrocardiogram shows sinus rhythm, possible anterior infarct. No change from older EKGs. Impression: Mr. Evangelista denies having any chest pain. My impression is that he is a very acceptable c andidate for undergoing amputation. We should not delay amputation for any cardiac studies. That fo ot needs to come off quickly before it gets more septic and he dies from septicemia. He had a cardia c workup including cardiac cath possible. His creatinine is over 3 all the inf ected material . SH/MODL Voice ID: [id number] Report ID: [id number]
[2018-10-29] MEDS: MORPHINE 2 MG/ML SYR IV PRN ×2 (17:50→21:57)
[2018-10-29] MEDS: ENOXAPARIN 30 MG/0.3 ML SQ SCH (17:52)
[2018-10-29] MEDS: DOXAZOSIN 4 MG TAB PO SCH (21:54)
[2018-10-29] MEDS: ATORVASTATIN 10 MG TAB PO SCH (21:55)
[2018-10-30] MEDS: HYDROCODONE/APAP 7.5/325 MG TAB PO PRN ×3 (00:47→18:49)
--- NOTE | 2018-10-30 01:52 | OP ---
Date of Procedure: 10/29/2018 Surgeon: Dain Marcum MD, Preoperative Diagnosis: Right leg ischemia and acute on chronic foot wound. Postoperative Diagnosis: Right leg ischemia and acute on chronic foot wound. Procedure Performed: Right otfqt-gdd-zxcu amputation. Anesthesia: General endotracheal. Estimated Blood Loss: Less than 100 cc. Specimen: Foot and additional soleus muscle. Findings: 1. Ischemia to distal muscle groups. 2. Calcified arteries. 3. Remaining muscle was sluggish, but contractile. Drains: A quarter-inch [place] drain was placed. Disposition: The patient was transferred to recovery room in good condition. Procedure In Detail: After informed consent was obtained, the patient was brought to the operating room, prepped and draped in the usual sterile fashion. After adequate anesthesia was achieved, a dissection continued down based on a 1/3 to 2/3 flap orientation on the right lower extremity. Dissection continued down after demarcating the posterior gastrocs flap orientation with a marking pen and dissection continued down with a 10 blade scalpel through subcutaneous tissues sparing the superficial saphenous vein and greater saphenous vein which were individually ligated with a LigaSure device with good hemostasis. After this, I continued to dissect down through the anterior compartment through the tibialis anterior to expose the extensor hallucis longus and the extensor digitorum longus. I continued to dissect down through the peroneus tertius and expose the anterior tibial and deep peroneal nerves in the anterior compartment. These were individually ligated and stick-tied with a 3-0 Vicryl suture with good hemostasis. Dissection continued around the interosseous membrane to expose the tibia and dissect around through the tibialis posterior as well as the flexor digitorum longus on the posterior aspect to expose the tibia. Once the tibia was circumferentially dissected free of all the tissues, a periosteal elevator was used to push the periosteum back approximately 2 cm distal to the proposed transection margin. After this was completely cleansed off, an [employer] retractor was placed behind along with a gauze and a bone saw was used to dissect down through the tibia without incident or complication. There was minimal marrow bleeding at this time and the area was packed with a hemostatic gauze at this time. Dissection continued down through the peroneus brevis and peroneus longus on the lateral compartment to expose the remainder of the fibula after the flexor hallucis longus was dissected free and tibialis posterior was dissected free. The demarcation point of the fibula was determined to be slightly higher than the dissection point of the tibia approximately by half a centimeter. This was cleared of periosteum also with periosteal elevator and an [facility] retractor was placed posterior along with a laparotomy pad and once again the bone saw was used to dissect this. At this point, the ligation of bone was complete at this point. I continued down to expose the posterior tibial artery and neurovascular bundle at this time. I then individually ligated these with the same said 3-0 Vicryl suture and sealed the distal aspects with the LigaSure device. I then dissected down through the soleus and gastrocnemius muscles. Based on the gastrocs flap, I had planned to utilize the soleus to buttress the area, but noted that the soleus muscle appeared somewhat ischemic with no significant motion to electrocautery dissection. As such, the soleus muscle was removed in its entirety and sent off for examination with remainder the specimen. After the posterior flap and the medial and lateral head of the gastrocnemius and the plantaris muscle in the posterior compartment, the septum was completely free from the remaining tissues except for the skin, and the skin and posterior gastrocs flap were found to be viable with sluggish muscular motion, but muscular motion was evident at this time. The arteries of note were quite calcified at this time and required stick-ties, which were performed earlier as described. At this point, the tibia and fibula were beveled using a bone rasp with good smooth surfaces remaining. The periosteum was pushed back also a minimum 2 cm away from the cut surfaces and the area was copiously irrigated until completely clear. Good hemostasis was achieved at this time without additional hemostatic maneuvers and the flap was oriented over the anterior surface based on the gastrocnemius flap. At this point, the deep fascia of the posterior compartment was then secured to the anterior fascia of the anterior compartment to allow for closure of the flap based on the gastrocs flap. This was performed with 0 Vicryl sutures in an interrupted fashion and 1 single 0 nylon suture at the center point for orientation. I then proceeded to secure. I inspected the area for hemostasis once again, which was achieved without any additional hemostatic maneuvers. At this point, significant edema was still evident in the area and I placed a quarter-inch Stephen drain into the flap and proceeded to close the skin with interrupted augustin. The patient tolerated the procedure well without complication and a sterile dressing was placed over top. The patient was was placed in knee immobilizer and limb was elevated. The patient tolerated the procedure well without complication and transferred to the PACU in good condition. All counts were correct at the end of the case. ROSAURA/DALTON Voice ID: [id number] Report ID: [id number]
[2018-10-30] MEDS: NACHLORIDE 0.45% 1,000 ML IV SCH ×2 (05:00→10:26)
[2018-10-30] MEDS: METOPROLOL XL 50 MG TAB PO SCH ×2 (06:35→17:37)
[2018-10-30] MEDS: PANTOPRAZOLE 40MG TABLET PO SCH (06:35)
[2018-10-30] MEDS: MORPHINE 2 MG/ML SYR IV PRN (06:35)
[2018-10-30] MEDS: INSULIN -REGULAR HUMAN 50 UNIT/0.5 ML ML SQ SCH ×4 (07:30→21:00)
[2018-10-30 08:08] LABS: Absolute Monocytes 0.5 K/uL (0.1-1.3); Absolute Neutrophil 5.7 K/uL (1.8-8.0); Basophils % 0.6 % (0-1.3); Hematocrit 24.2 % (39.6-49.0); Lymphocytes % 13.4 % (15.3-44.8); MPV 9.4 fL (7.6-11.3); Monocytes % 7.1 % (3.3-12.3); RBC Red Blood Cell Count 2.52 M/uL (4.33-5.43)
[2018-10-30 08:14] LABS: Potassium 4.4 mmol/L (3.5-5.1)
--- NOTE | 2018-10-30 08:29 | CON ---
Date of Consultation: 10/27/2018 NEPHROLOGY CONSULT NOTE Chief Complaint: The patient was sent for worsening foot infection and fever. Reason For Consultation: CKD. History Of Present Illness: An 88-year-old man with past medical history of uncontrolled diabetes me llitus, uncontrolled hypertension, CKD, 4. The patient was sent from a retirement for fever, worse janes foot infection, and dyspnea, found to have O2 saturation, chest x-ray suspicious for pneumonia. The patient was started on IV antibiotics. Creatinine baseline around 2.1, right now it is up to 2. 3. No nausea, vomiting, diarrhea, or constipation. Past Surgical History: Spinal surgery, femoral stent, tonsillectomy, quadruple bypass. Family History: Mother had TB. Mother had history of lymphoma. Social History: Former smoker. No history of alcohol or recreational drug abuse. Allergies: CIPRO . Physical Examination: Vital Signs: Temperature 97.5, pulse 65, respiratory rate , blood pressure 171/61. Laboratory Data: Sodium 141, potassium 4.1, chloride 108, bicarb 27, BUN 41, creatinine 2.3, calcium 8.2. Assessment And Plan: 1.Chronic kidney disease, 4; diabetes mellitus creatinine at baseline of 2.1 a nd now creatinine 2.3 . 2.Hypertension, uncontrolled. We will increase amlodipine to 10 mg daily. 3. right foot osteomyelitis. Plan for surgical treatment for pneumonia. The p atient has had 2 week. plan to continue vancomycin and discontinue Merrem. 4.Lower extremity edema. The patient was on Lasix 80 mg daily 40 mg. We will give Lasix 40 mg daily and then switch to p.o. AA/MODL Voice ID: [id number] Report ID: [id number]
--- NOTE | 2018-10-30 08:41 | CON ---
Date of Consultation: 10/28/2018 History Of Present Illness: Acute kidney injury on chronic kidney. The patient has multiple medical problems including history of diabetes mellitus, hypertension, diabetic kidney disease, chronic kidn ey disease stage 3. Back in 2019, BUN was 51, creatinine 1.9. He has history of prerenal azotemia a nd creatinine previously was found to be up to 2.6, although he did not require dialysis at that time . Nephrology consultation is requested during this admission because of abnormal kidney function venita t, worsening of azotemia. Blood work showed creatinine of 3.18. The patient has uncontrolled diabet es. Renal function has worsened since yesterday. BUN was 41, creatinine 2.34, sodium 141, potassium 4.1, chloride 108, CO2 27. Today, creatinine level was up to 3.18. GFR dropped from 32 baseline to 19. The patient has multiple medical problems. He is admitted for lower extremity diabetic foot infectio n with osteomyelitis and peripheral vascular disease. He underwent extremity venous study to rule ou t DVT. It did not show any evidence of deep vein thrombosis. The patient is consulted by surgical t bryon for possible amputation. The patient is an 88-year-old male with history of chronic ulcer of the right foot on the plantar aspect which has eroded to full thickness of the dorsal aspect. The patie nt developed purulent drainage in large amount of pus. He has history of osteomyelitis, treated with [facility]. He now has positive MRSA on blood culture. The patient is n oncompliant with diabetic care and wound care. The patient has diabetes mellitus, uncontrolled. The patient was found to have bacteremia. He has significant vascular disease, previously was seen by vinny mo surgeon in [place]. He had 3-vessel stent placed and revascularization with angioplasty to the same said vessels with some tenriism of the blood loss. The patient has pneumonia and chest x -ray showed infiltrate. He is started on antibiotics. Acute kidney injury on chronic kidney disease remains nonoliguric. Electrolytes are pending. Yesterday, blood work showed electrolytes as follow : Sodium 141, potassium 4.1, chloride 108, CO2 27, BUN 41, creatinine 2.34, and glucose 225. Today, creatinine level was up to 3.18. Review of Systems: Unobtainable. The patient is lethargic, cannot provide review of systems. Past Medical History: Diabetes mellitus; chronic kidney disease stage 3, previously acute kidney inj ury, did not require dialysis; hyperlipidemia; peripheral vascular disease; diabetes mellitus; pulmon felisa valve disease; diabetic foot infection; cellulitis of the extremities; uncontrolled diabetes; atr ial fibrillation . Past Surgical History: CABG, peripheral vascular disease procedure with revascularization, tonsillec dany, cataract surgery, spinal surgery, adenoidectomy. Family History: Diabetes and hypertension. Social History: The patient is a former smoker. Denies alcohol or recreational drug. Review of Systems: Unobtainable. The patient is lethargic, cannot provide review of systems. Physical Examination: General: The patient is lethargic. Eyes: Anicteric sclerae. EOMI. Ears, Nose, Mouth, and Throat: Oral mucosa moist. No pallor. Neck: Supple. No JVD. No bruits. Lungs: Few crackles at bases. Heart: S1, S2. No pericardial friction rub. Abdomen: Obese, soft, nontender. No rebound. No guarding. No CVA tenderness. Musculoskeletal: There is swelling in bilateral lower extremities above the knee. Skin: There is right foot plantar wound over the metatarsal head of the fifth metatarsal extending t o plantar aspect as well. Extremities: 2+ to up to 3+ edema. Redness extends to below knee in the right lower extremity. Neurological: The patient lethargic, no tremor. Blood Work: Hemoglobin is 9.0, hematocrit 27.9, platelet count 257,000, white count 13,500. Lung V/Q scan showed low probability of pulmonary embolization. Chest x-ray performed on October 25 owed mild lung opacities, indicate pneumonia, particularly in the mid left lung. Impression And Plan: 1.The patient is an 88-year-old man with multiple medical problems including history of diabetes martha litus, infection of the right foot with methicillin-resistant Staphylococcus aureus, history of hyper tension, peripheral vascular disease, coronary artery disease, hyperlipidemia, uncontrolled diabetes, diabetic foot infection. He developed azqqq-oi-egriaim kidney injury. The patient has underlying c hronic kidney disease 3B and over the last few days, renal function declined. Creatinine is up to 3. 14. The patient has nonoliguric acute tubular necrosis. Continue hydration. The patient has had po or p.o. intake. IV fluids will be started for mild volume resuscitation. The patient will need anti biotic for methicillin-resistant Staphylococcus aureus infection with severe cellulitis and osteomyel itis of the right foot. A vancomycin level will be evaluated when the patient is on vancomycin to ad just treatment and prevent vancomycin toxicity. 2.Hypertension, hold KIRK inhibitor due to acute kidney injury. 3.Acute kidney injury, nonoliguric. Monitor electrolytes to rule out metabolic acidosis and hyperka lemia. Check CK level to rule out rhabdomyolysis. 4.The patient has fopbr-ow-rffkjkn kidney injury. Plan is to evaluate for an evidence of urinary re tention. Renal ultrasound was done on September 27, 2018, and did not show hydronephrosis. There is medical renal disease. Right kidney is 8.6 and left kidney 9.7. The patient has bilateral kidney cy sts. Medical renal disease likely diabetes mellitus and hypertension, benign nephrosclero sis. There is no evidence of obstructive uropathy. 5.Diabetes mellitus with renal manifestation. Monitor proteinuria. 6.Hypertension. Monitor blood pressure closely. Adjust medication for systolic blood pressure 120. RUBÉN/MODL Voice ID: [id number] Report ID: [id number]
[2018-10-30] MEDS: BIMATOPROST OPTH SCH ×2 (09:00→22:05)
[2018-10-30] MEDS: INSULIN GLARGINE 100 UNITS/ML SQ SCH ×2 (09:00→21:00)
[2018-10-30] MEDS: COLLAGENASE 30 GM OINTMENT TOP SCH (09:00)
[2018-10-30] MEDS: AMLODIPINE 10 MG TAB PO SCH (09:00)
[2018-10-30] MEDS: CLOPIDOGREL 75 MG TABLET PO SCH (10:27)
[2018-10-30] MEDS: Meropenem 500 MG in NA CHLORIDE 0.9% 100 ML IV SCH (10:33)
[2018-10-30] MEDS: DORZOLAMIDE OPTH SCH ×2 (10:34→22:06)
[2018-10-30] MEDS: Brimonidine Tartrate/Timolol [Combigan 0.2%-0.5%] Eye Drops OPTH SCH ×2 (10:34→22:06)
[2018-10-30] MEDS ORDERED: NA CHLORIDE 0.9% 250 ML ONE (16:49)
[2018-10-30] MEDS ORDERED: FUROSEMIDE 40 MG/4 ML VIAL IV SCH (17:15)
--- NOTE | 2018-10-30 17:58 | P.PN ---
Subjective Date of Service: 10/30/18 Chief Complaint: WEAK, DIABETIC, GANGRENOUS FOOT MR. YAN IS GETTING SOMEWHAT BETTER. HE HAS NO CHEST PAIN OR DYSPNEA. HE IS FATIGUED. HE HAS IMPROVED BUT STILL NOT BEFORE. HE IS STABLE BUT WEAK, SLEEPY. I SAW HIM TODAY IN OR. PREPARING FOR SURGERY, R BKA. HE IS HIGH RISK BUT FAMILY KNOWS AND HE KNOWS THAT HE HAS TO TAKE A RISK HIS FOOT HAS WET GANGRENE AND MAY GET RAPIDLY WORSE. SP R BKA . DR MARIN SAID THAT CIRCULATION IS VERY POOR AT THE STUMP AND IT MAY NOT HEAL. Review of Systems General: Weakness, Malaise Physical Examination - Vital Signs Temperature: 97.3 F Blood Pressure: 115/41 Pulse: 49 Respirations: 18 Pulse Ox (%): 94 - Physical Exam General: Alert, Mild distress, Confused HEENT: Atraumatic, PERRLA, EOMI Neck: Supple, JVD not distended Respiratory: Clear to auscultation bilaterally, Normal air movement Cardiovascular: Regular rate/rhythm, Normal S1 S2 Gastrointestinal: Normal bowel sounds, No tenderness Musculoskeletal: No tenderness Integumentary: Other (R BKA.) Neurological: Normal speech, Normal tone, Normal affect Lymphatics: No axilla or inguinal lymphadenopathy Other Physical/Emotional Findings: NO DEPRESSION, ANXIETY. - Studies Laboratory Data (last 24 hrs) 10/30/18 07:33: Sodium 143, Potassium 4.4, BUN 80 H, Creatinine 3.50 H, Glucose 89 10/30/18 07:33: WBC 7.6 D, Hgb 7.7 L*, Hct 24.2 L, Plt Count 212 Medications List Reviewed: Yes Assessment And Plan - Current Problems (Diagnosis) (1) Bacterial pneumonia Current Visit: Yes Status: Acute Plan: I GAVE HIM BROAD [employer] COVERAGE NOT KNOWING ABOUT CLEAR BACTERIA. WILL STOP VANCOMYCIN. RESUME MERREM. HE IS HIGH RISK FOR POOR PROGNOSIS. HE HAS TOLD ME IN THE PAST THAT HE HAS NO INTEREST IN CONTROLLING HIS DIET FOR DM HE IS 88 AND WANTS GO TO EATING NORMALLY AND NOT FOR DIABETICS. IMPROVED CLINICALLY. REPEAT CXR. VANCOMYCIN TO CONTINUE. HE IS GROWING MRSA. CLINICALLY STABLE. (2) Diabetes Current Visit: No Status: Acute Plan: ABOVE POOR CONTROL. UNDERSTADING IS POOR. RAISE DOSE. Qualifiers: Diabetes mellitus type: type 2 Diabetes mellitus complication status: with circulatory complication Diabetes mellitus complication detail: with peripheral angiopathy without gangrene (3) Diabetic foot ulcer Onset Date: 03/24/18 Current Visit: No Status: Chronic Plan: NOT CURABLE. HE HAS RENAL FAILURE AND OSTEOMEYLITIS. HE IS NOT A CANDIDATE FOR STENTS OR BYPASS. HE MAY GO TO [facility] IF FAMILY WISHES BUT EVEN THERE WE WILL NOT BE ABLE TO SAVE HIS LEG. I WILL OFFER THIS TO HIM . RESUME IV MERREM. I TALKED TO PATIENT AND TODAY. I EXPLAINED THAT CHANCE OF IMPROVING THE ULCER ON R FOOT IS CLOSE TO ZERO. HE SHOULD GET AMPUATATION DONE. HE HAS DM, CKD, SEVERE PVD AND AGE AGAINST HIM. HE AGREES. HE CAN DO THIS AFTER HE IMPROVES REGARDING PNEUMONIA. MERREM TO CONTINUE HE HAS NECROTIC FOOT ULCER. I TALKED TO DR ROCA AND HE SAYS HE WILL NOT DO SURGERY UNTIL HE IS BETTER FROM PNEUMONIA [facility] CLINICALLY HE IS BETTER. TODAY ULCER IS EXTENDING INTO A LARGE GANGRENOUS ABSCESS. I CALLED DR JEROME TO GET AMPUTATION DONE HE IS GETTING WORSE. FAMILY IS READY. I CALLED AGAIN. IN HPI SURGERY IS URGENT AND MUST BE DONE. SP AMPUTATION STOP MERREM NOW. RESUME VANCOMYCIN FOR GRAM POS SEPTICEMIA. PROGNOSIS IS POOR. HE WILL GO TO [place] BUT I AM NOT SURE IF HE WILL RECOVER. 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 (5) Gram positive sepsis Current Visit: Yes Status: Acute Plan: I DECIDED NOT TO GIVE HIM BOLUS CLINICALLY HE WOULD HAVE GOTTEN WORSE WITH MAJOR FLUID OVERLOAD. HE HAS CKD IN ADDITION TO OLD AGE. MRSA. SENSITIVE TO VANCOMYCIN. (6) CKD stage 4 due to type 2 diabetes mellitus Current Visit: Yes Status: Acute Plan: HE IN THE PAST ABOUT 3 YEARS AGO TOLD ME THAT HE DOES NOT CARE ABOUT DM OR COMPLICATIONS. HE WANTED TO JUST EAT WHATEVER HE WANTS AND ENJOY HIS LAST FEW YEARS.
[2018-10-30] MEDS: ENOXAPARIN 30 MG/0.3 ML SQ SCH (18:50)
[2018-10-30] MEDS: DOXAZOSIN 4 MG TAB PO SCH (21:00)
[2018-10-30] MEDS ORDERED: DOXAZOSIN 2 MG TAB ONE (21:29)
[2018-10-30] MEDS: ATORVASTATIN 10 MG TAB PO SCH (22:06)
[2018-10-31] MEDS ORDERED: NA CHLORIDE 0.9% 50 ML ONE (01:13)
--- NOTE | 2018-10-31 02:51 | PN ---
Date of Progress Note: 10/30/2018 Chief Complaint: Acute kidney injury on chronic kidney disease. History Of Present Illness: The patient has multiple medical problems including history of diabetes mellitus; diabetic kidney disease; chronic kidney disease, stage 3; baseline creatinine was 1.9. He has history of prerenal azotemia, previously creatinine went up to 2.6 and improved to baseline. Dur ing this admission, the patient is undergoing treatment for lower extremity cellulitis and he was rehana eduled to have surgery with amputation. Review of Systems: Denies fever or chills. Physical Examination: Lungs: Few crackles at bases. Heart: S1, S2. Abdomen: Soft, benign, nontender. Extremities: Slight edema. Impression And Plan: 1.Acute on chronic kidney injury. Continue mild IV hydration. 2.Bladder outlet obstruction. Urinary retention. Continue Flannery catheter. 3.Anemia. Hemoglobin level is 9.0 and dropped to 7 after surgery. The patient will have 2 units of packed red blood cell transfusion and will have Lasix administered after third unit. 4.Patient has chronic kidney disease, stage 3. Monitor urine output and fluid balance. Avoid nonst eroidal anti-inflammatory medication. CK level was normal with rule out rhabdomyolysis. 5.Acute on chronic kidney injury with urinary retention. Ultrasound did not show hydronephrosis. 6.The patient has history of diabetes and diabetic kidney disease. Medical renal disease was visualized on the CT scan and ultrasound. 7.Hypertension. Continue current blood pressure medication. RUBÉN/DALTON Voice ID: [id number] Report ID: [id number]
[2018-10-31] MEDS: VANCOMYCIN 1.75 GM in NA CHLORIDE 0.9% 500 ML IVPB SCH (05:00)
[2018-10-31] MEDS: PANTOPRAZOLE 40MG TABLET PO SCH (05:52)
[2018-10-31] MEDS: HYDROCODONE/APAP 7.5/325 MG TAB PO PRN (05:53)
[2018-10-31] MEDS: METOPROLOL XL 50 MG TAB PO SCH ×2 (06:00→18:00)
[2018-10-31] MEDS: INSULIN -REGULAR HUMAN 50 UNIT/0.5 ML ML SQ SCH ×4 (07:30→21:00)
[2018-10-31 08:22] LABS: Absolute Monocytes 0.6 K/uL (0.1-1.3); Absolute Neutrophil 7.6 K/uL (1.8-8.0); Basophils % 0.5 % (0-1.3); Hematocrit 30.7 % (39.6-49.0); Lymphocytes % 10.6 % (15.3-44.8); MPV 9.2 fL (7.6-11.3); Monocytes % 6.8 % (3.3-12.3); RBC Red Blood Cell Count 3.29 M/uL (4.33-5.43)
[2018-10-31 08:31] LABS: Potassium 5.1 mmol/L (3.5-5.1)
[2018-10-31] MEDS: DORZOLAMIDE OPTH SCH ×2 (08:34→21:00)
[2018-10-31] MEDS: Brimonidine Tartrate/Timolol [Combigan 0.2%-0.5%] Eye Drops OPTH SCH ×2 (08:34→21:00)
[2018-10-31] MEDS: BIMATOPROST OPTH SCH ×2 (08:34→21:00)
[2018-10-31] MEDS: INSULIN GLARGINE 100 UNITS/ML SQ SCH ×2 (08:39→21:00)
[2018-10-31] MEDS: COLLAGENASE 30 GM OINTMENT TOP SCH (08:42)
[2018-10-31] MEDS: CLOPIDOGREL 75 MG TABLET PO SCH (08:43)
[2018-10-31 09:46] LABS: Blood Morphology Comment NOT SEEN (NOT SEEN); Platelet Estimate ADEQ
--- NOTE | 2018-10-31 13:00 | P.PN ---
Subjective Date of Service: 10/31/18 Chief Complaint: WEAK, DIABETIC, GANGRENOUS FOOT Patient symptoms unchanged, no pain while in bed and non-weight bearing, feels generally well otherwise Physical Examination - Vital Signs Temperature: 97.8 F Blood Pressure: 140/45 Pulse: 59 Respirations: 22 Pulse Ox (%): 93 - Physical Exam General: Other (sleepy but arousable) Musculoskeletal: Other (BKA site remains clean with chioma in place,no ischemia at this time, drainage is minimal) Other Physical/Emotional Findings: NO DEPRESSION, ANXIETY. - Studies Laboratory Data (last 24 hrs) 10/31/18 07:56: Sodium 142, Potassium 5.1, BUN 91 H, Creatinine 4.39 H, Glucose 89 10/31/18 07:56: WBC 9.4 D, Hgb 9.7 L, Hct 30.7 L D, Plt Count 221 Medications List Reviewed: Yes Assessment And Plan - Plan - continue to elevate BKA site and daily dressing changes with leg immobilizer to be left on - continue medical management per
--- NOTE | 2018-10-31 13:17 | RAD REPORT ---
EXAM DESCRIPTION: Matthew Single View10/31/2018 1:11 pm CLINICAL HISTORY: Shortness of breath COMPARISON: March 2018 FINDINGS: Postsurgical changes involve chest There has been worsening in left lung opacities. Left pleural effusion suspected. Development of mild right lung opacities. The heart is mildly to moderately enlarged IMPRESSION: Worsening in left pulmonary opacities which may represent pneumonia or pulmonary edema Mild right lung opacities probably represent pulmonary edema
--- NOTE | 2018-10-31 15:10 | RAD REPORT ---
EXAM DESCRIPTION: US - Renal Ultrasound-Complete - 10/31/2018 2:57 pm CLINICAL HISTORY: Acute renal failure COMPARISON: September 2018 FINDINGS: The right kidney measures 10 cm with a normal echotexture. 5.7 centimeter cyst The left kidney measures 9 cm with a normal echotexture. 2.3 centimeter cyst. 2.5 centimeters cyst Hydronephrosis is not seen. IMPRESSION: Bilateral renal cysts
--- NOTE | 2018-10-31 17:09 | PN ---
Date of Progress Note: 10/31/2018 Subjective: The patient is still with altered mental status. Poor intake. The patient is status po st right below-knee amputation. Physical Examination: Vital Signs: Blood pressure 140/45, pulse of 59. Afebrile. The patient had decrease in urine outpu t to 750, dark urine. Chest: Crackles bilateral base. Heart: S1, S2. Systolic murmur. Abdomen: Soft, nontender. Extremity: Right below-knee amputation. +1 edema but has a lot of skin wrinkles. Neuro: The patient is sleepy, moving extremity with pain stimuli. Laboratory Data: WBC 9.4, H and H 9.7/30.7, platelets 222. Sodium 142, potassium 5.1, bicarb 23, BU N 91, creatinine 4.3, worsening GFR down to 13, calcium 7.3. Current Medications: The patient on its include: 1.Vancomycin 1.75 every 48 hours. 2.Plavix. 3.Lovenox. 4.Atorvastatin. 5.Doxazosin, Cardura 4 mg daily. 6.Metoprolol 25 b.i.d. 7.Lasix with the transfusion half-normal at 50 per hour. 8.Hydrocodone. Diagnostic Data: Chest x-ray showing cardiomegaly with congestion, bilateral. Compared to the chest x-ray before it is slightly worsening. Vancomycin trough of 29. Assessment And Plan: 1.Acute kidney injury on chronic kidney disease, over volume. I am going to go ahead and start the patient on gentle hydration with D5 half-normal. This fluid has to be stopped when the patient start IDPN. 2.Given decline in mental status and the presence of the anemia, I am going to send for full workup to rule out any autoimmune disease or toxic acute tubular necrosis in the presence of acute kidney in [facility] and we will follow up. 3.Over volume, possible secondary to cardiorenal. I will start the patient on Lasix. 4.Anasarca secondary to cardiorenal. We will start the patient on Lasix. I am going to go ahead an d send for TSH and we will monitor the patient. 5.Foot infection status post below-knee amputation. Hold vancomycin for the time being, given the l evel of the vancomycin trough. 6.Encephalopathy secondary to uremia, we will try to adjust the fluid status for the patient if kidn ey function continues to decline. The patient may need renal replacement therapy. 7.Malnourished. We will start the patient on PPN. CARLY Voice ID: [id number] Report ID: [id number]
[2018-10-31] MEDS: ENOXAPARIN 30 MG/0.3 ML SQ SCH (17:35)
[2018-10-31] MEDS: D5 0.2 NS 1,000 ML IV SCH (17:35)
[2018-10-31 17:48] LABS: Arterial Blood Carboxyhemoglob 2.2 % (0-1.5); Blood Gas Oxyhemoglobin 90.8 % (94-97); Blood O2 Saturation 93.4 % (92-98.5)
[2018-10-31] MEDS: ATORVASTATIN 10 MG TAB PO SCH (21:00)
--- NOTE | 2018-10-31 21:57 | P.PN ---
Subjective Date of Service: 10/31/18 Chief Complaint: SP AMPUTATION Subjective: Worsening MR. YAN IS GETTING SOMEWHAT BETTER. HE HAS NO CHEST PAIN OR DYSPNEA. HE IS FATIGUED. HE HAS IMPROVED BUT STILL NOT BEFORE. HE IS STABLE BUT WEAK, SLEEPY. I SAW HIM TODAY IN OR. PREPARING FOR SURGERY, R CYNTHIA. HE IS HIGH RISK BUT FAMILY KNOWS AND HE KNOWS THAT HE HAS TO TAKE A RISK HIS FOOT HAS WET GANGRENE AND MAY GET RAPIDLY WORSE. SP R BKA . DR MARIN SAID THAT CIRCULATION IS VERY POOR AT THE STUMP AND IT MAY NOT HEAL. MR YAN IS NOT DOING WELL IN POST OP PERIOD HE HAS BEEN LETHARGIC. Review of Systems General: Weakness, Malaise Physical Examination - Vital Signs Temperature: 98.3 F Blood Pressure: 136/59 Pulse: 60 Respirations: 19 Pulse Ox (%): 94 - Physical Exam General: Oriented x2, Mild distress, Obese, Other Neck: Supple Respiratory: Clear to auscultation bilaterally Cardiovascular: No edema Musculoskeletal: Other (R BKA SP.) Other Physical/Emotional Findings: NO DEPRESSION, ANXIETY. - Studies Laboratory Data (last 24 hrs) 10/31/18 07:56: Sodium 142, Potassium 5.1, BUN 91 H, Creatinine 4.39 H, Glucose 89 10/31/18 07:56: WBC 9.4 D, Hgb 9.7 L, Hct 30.7 L D, Plt Count 221 Medications List Reviewed: Yes Assessment And Plan - Current Problems (Diagnosis) (1) Bacterial pneumonia Current Visit: Yes Status: Acute Plan: I GAVE HIM BROAD [employer] COVERAGE NOT KNOWING ABOUT CLEAR BACTERIA. WILL STOP VANCOMYCIN. RESUME MERREM. HE IS HIGH RISK FOR POOR PROGNOSIS. HE HAS TOLD ME IN THE PAST THAT HE HAS NO INTEREST IN CONTROLLING HIS DIET FOR DM HE IS 88 AND WANTS GO TO EATING NORMALLY AND NOT FOR DIABETICS. IMPROVED CLINICALLY. REPEAT CXR. VANCOMYCIN TO CONTINUE. HE IS GROWING MRSA. CLINICALLY STABLE. (2) Diabetes Current Visit: No Status: Acute Plan: ABOVE POOR CONTROL. UNDERSTADING IS POOR. RAISE DOSE. Qualifiers: Diabetes mellitus type: type 2 Diabetes mellitus complication status: with circulatory complication Diabetes mellitus complication detail: with peripheral angiopathy without gangrene (3) Diabetic foot ulcer Onset Date: 03/24/18 Current Visit: No Status: Chronic Plan: NOT CURABLE. HE HAS RENAL FAILURE AND OSTEOMEYLITIS. HE IS NOT A CANDIDATE FOR STENTS OR BYPASS. HE MAY GO TO LTAC IF FAMILY WISHES BUT EVEN THERE WE WILL NOT BE ABLE TO SAVE HIS LEG. I WILL OFFER THIS TO HIM . RESUME IV MERREM. I TALKED TO PATIENT AND TODAY. I EXPLAINED THAT CHANCE OF IMPROVING THE ULCER ON R FOOT IS CLOSE TO ZERO. HE SHOULD GET AMPUATATION DONE. HE HAS DM, CKD, SEVERE PVD AND AGE AGAINST HIM. HE AGREES. HE CAN DO THIS AFTER HE IMPROVES REGARDING PNEUMONIA. MERREM TO CONTINUE HE HAS NECROTIC FOOT ULCER. I TALKED TO DR ROCA AND HE SAYS HE WILL NOT DO SURGERY UNTIL HE IS BETTER FROM [facility] CLINICALLY HE IS BETTER. TODAY ULCER IS EXTENDING INTO A LARGE GANGRENOUS ABSCESS. I CALLED DR JEROME TO GET AMPUTATION DONE HE IS GETTING WORSE. FAMILY IS READY. I CALLED AGAIN. IN HPI SURGERY IS URGENT AND MUST BE DONE. SP AMPUTATION STOP MERREM NOW. RESUME VANCOMYCIN FOR GRAM POS SEPTICEMIA. PROGNOSIS IS POOR. HE WILL GO TO [place] BUT I AM NOT SURE IF HE WILL RECOVER. 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 (5) Gram positive sepsis Current Visit: Yes Status: Acute Plan: I DECIDED NOT TO GIVE HIM BOLUS CLINICALLY HE WOULD HAVE GOTTEN WORSE WITH MAJOR FLUID OVERLOAD. HE HAS CKD IN ADDITION TO OLD AGE. MRSA. SENSITIVE TO VANCOMYCIN. (6) CKD stage 4 due to type 2 diabetes mellitus Current Visit: Yes Status: Acute Plan: HE IN THE PAST ABOUT 3 YEARS AGO TOLD ME THAT HE DOES NOT CARE ABOUT DM OR COMPLICATIONS. HE WANTED TO JUST EAT WHATEVER HE WANTS AND ENJOY HIS LAST FEW YEARS. (7) Anemia Current Visit: Yes Status: Acute Plan: POST OP. TRANSFUSE TWO UNITS. PROGNOSIS POOR WITH LETHARGY AND WORSE RENAL FUNCTION.
--- NOTE | 2018-11-01 03:04 | PN ---
Date of Progress Note: 10/29/2018 Chief Complaint: Acute on chronic kidney injury, prerenal azotemia, nonoliguric ATN. History Of Present Illness: The patient has nonoliguric urine output. The patient is undergoing rukhsana ge for osteomyelitis and nonhealing diabetic foot infection. The patient has chronic kidney diseas e stage 3, baseline creatinine 1.9. The patient developed prerenal azotemia. Creatinine level was u p to 2.6 and it is improved to baseline, and during this admission, the patient is undergoing treatme nt with antibiotics and he is scheduled to have amputation today. Review of Systems: Denies fever, chills. Physical Examination: Lungs: Clear to auscultation bilaterally. Heart: S1-S2. Abdomen: Soft, benign. Extremities: Slight edema. Impression And Plan: 1.Acute on chronic kidney injury. Continue mild hydration. 2.Bladder outlet obstruction. Monitor for any evidence of urinary retention. 3.Chronic kidney disease stage 3. Avoid nonsteroidal anti-inflammatory medication. Check CK level to rule out rhabdomyolysis. 4.Hypertension. Continue blood pressure medication. 5.Diabetic foot infection. Continue antibiotics and adjust antibiotics to renal function. EB/MODL Voice ID: [id number] Report ID: [id number]
[2018-11-01 05:55] LABS: Absolute Lymphocytes (CBC) 0.8 K/uL (0.7-4.9); Absolute Monocytes 0.5 K/uL (0.1-1.3); Absolute Neutrophil 9.7 K/uL (1.8-8.0); Basophils % 0.6 % (0-1.3); Hematocrit 28.8 % (39.6-49.0); MPV 9.4 fL (7.6-11.3); Monocytes % 4.9 % (3.3-12.3); RBC Red Blood Cell Count 3.05 M/uL (4.33-5.43)
[2018-11-01] MEDS: METOPROLOL XL 50 MG TAB PO SCH ×2 (06:00→17:38)
[2018-11-01] MEDS: PANTOPRAZOLE 40MG TABLET PO SCH (06:26)
[2018-11-01] MEDS: INSULIN -REGULAR HUMAN 50 UNIT/0.5 ML ML SQ SCH ×3 (07:30→16:30)
[2018-11-01] MEDS: Brimonidine Tartrate/Timolol [Combigan 0.2%-0.5%] Eye Drops OPTH SCH ×3 (09:00→21:00)
[2018-11-01] MEDS: CLOPIDOGREL 75 MG TABLET PO SCH (09:00)
[2018-11-01] MEDS: DORZOLAMIDE OPTH SCH ×3 (09:00→21:00)
[2018-11-01] MEDS: COLLAGENASE 30 GM OINTMENT TOP SCH (09:00)
[2018-11-01] MEDS: INSULIN GLARGINE 100 UNITS/ML SQ SCH (09:00)
[2018-11-01] MEDS ORDERED: FUROSEMIDE 40 MG/4 ML VIAL IV SCH (09:00)
[2018-11-01] MEDS: BIMATOPROST OPTH SCH ×3 (09:00→21:00)
[2018-11-01 09:12] LABS: Ferritin 368.4 ng/mL (26-388); Folic Acid, (Folate) 10.4 ng/mL (3.1-17.5); Phosphorus 8.4 mg/dL (2.5-4.9); Thyroid Stimulating Hormone 0.896 uIU/mL (0.360-3.740); Uric Acid 10.3 mg/dL (3.5-7.2)
[2018-11-01 09:14] LABS: Rheumatoid Factor NEG (NEG)
[2018-11-01 09:16] LABS: Potassium 5.9 mmol/L (3.5-5.1)
[2018-11-01] MEDS: FUROSEMIDE 40 MG in NA CHLORIDE 0.9% 50 ML IV SCH (09:27)
[2018-11-01] MEDS ORDERED: GLUCAGON 1 MG/VIAL IM PRN (10:31)
[2018-11-01] MEDS ORDERED: D50W 25 GM/50 ML SYRINGE IV PRN (10:31)
[2018-11-01] MEDS ORDERED: INSULIN -REGULAR HUMAN 50 UNIT/0.5 ML ML IV ONE (10:32)
[2018-11-01] MEDS ORDERED: D50W 25 GM/50 ML SYRINGE IV ONE (10:35)
[2018-11-01] MEDS ORDERED: ALBUTEROL 2.5 MG/3 ML NEB SOL NEB ONE (10:36)
[2018-11-01] MEDS: D5 0.2 NS 1,000 ML IV SCH (10:48)
--- NOTE | 2018-11-01 11:10 | P.PN ---
Subjective Date of Service: 11/01/18 Chief Complaint: SP AMPUTATION Patient is lethargic on CPAP Physical Examination - Vital Signs Temperature: 98.4 F Blood Pressure: 129/39 Pulse: 59 Respirations: 19 Pulse Ox (%): 97 - Physical Exam General: Unresponsive Musculoskeletal: Other (BKA site is clean, minimal drainage) Other Physical/Emotional Findings: NO DEPRESSION, ANXIETY. - Studies Laboratory Data (last 24 hrs) 11/01/18 05:26: Sodium 139, Potassium 5.9 H*, BUN 107 H, Creatinine 5.29 H*, Glucose 223 H, Uric Acid 10.3 H D, Phosphorus 8.4 H 11/01/18 05:26: WBC 11.1 H D, Hgb 9.1 L, Hct 28.8 L, Plt Count 216 Medications List Reviewed: Yes Assessment And Plan - Plan - continue to elevate BKA site and daily dressing changes with leg immobilizer to be left on - continue medical management per - Patient prognosis poor - Renal failure
[2018-11-01] MEDS ORDERED: CALCIUM GLUC 10% INJ 4.65 MEQ in NA CHLORIDE 0.9% 100 ML IV ONE (11:39)
[2018-11-01] MEDS ORDERED: WATER FOR INJ,STERILE 1,000 ML with NA BICARB 8.4% 150 MEQ IV SCH ×2 (12:00)
[2018-11-01] MEDS: ENOXAPARIN 30 MG/0.3 ML SQ SCH (16:17)
[2018-11-01] MEDS ORDERED: [UNRECOGNIZED DRUG - NUTRITION] IV SCH ×4 (17:00)
--- NOTE | 2018-11-01 19:04 | PN ---
Date of Progress Note: 11/01/2018 Subjective: The patient was admitted with foot infection, status post right below-knee amputation. The patient being altered mental status. Physical Examination: Vital Signs: Blood pressure 107/31, pulse of 65, afebrile. The patient had urine output of 1 L. Chest: Crackles bilateral base. Heart: S1 and S2, systolic murmur. Abdomen: Soft, nontender. Extremities: Trace edema. Laboratory Data: H and H of 9.1 and 28.8. Sodium 139, potassium 5.9, bicarb 17 , chloride 106, BUN 107, creatinine 5.2, GFR of 10. TSAT of 12, ferritin 368, PTH 212. Current Medications: The patient on its include, 1. Vancomycin. 2. Albuterol. 3. Plavix. 4. Lovenox. 5. Atorvastatin. 6. Metoprolol 25 b.i.d. 7. [facility], family decided to go with hospice for that reason . 8. Hyperkalemia. We will treat conservatively as the patient is going to be on hospice, albuterol, D50 and we will monitor. 9. Acidosis secondary to renal failure. We will start bicarb drip. 10. Foot infection, status post below-knee amputation. Follow up with Vascular Surgery. Continue current antibiotics. CARLY Voice ID: [id number] Report ID: [id number] MTDD
--- NOTE | 2018-11-01 20:55 | P.PN ---
Subjective Date of Service: 11/01/18 Chief Complaint: SP AMPUTATION Subjective: Worsening MR. YAN IS GETTING SOMEWHAT BETTER. HE HAS NO CHEST PAIN OR DYSPNEA. HE IS FATIGUED. HE HAS IMPROVED BUT STILL NOT BEFORE. HE IS STABLE BUT WEAK, SLEEPY. I SAW HIM TODAY IN OR. PREPARING FOR SURGERY, R BKA. HE IS HIGH RISK BUT FAMILY KNOWS AND HE KNOWS THAT HE HAS TO TAKE A RISK HIS FOOT HAS WET GANGRENE AND MAY GET RAPIDLY WORSE. SP R BKA . DR MARIN SAID THAT CIRCULATION IS VERY POOR AT THE STUMP AND IT MAY NOT HEAL. MR YAN IS NOT DOING WELL IN POST OP PERIOD HE HAS BEEN LETHARGIC. HE IS NOT ABLE TO WAKE UP SINCE YESTERDAY. HE IS COMATOSE. Review of Systems is unable to be obtained Physical Examination - Vital Signs Temperature: 98.5 F Blood Pressure: 122/51 Pulse: 68 Respirations: 19 Pulse Ox (%): 97 - Physical Exam General: Moderate distress, Unresponsive, Comatose Neck: Supple Respiratory: Clear to auscultation bilaterally, Diminished Cardiovascular: No edema, Normal S1 S2 Other Physical/Emotional Findings: NO DEPRESSION, ANXIETY. - Studies Laboratory Data (last 24 hrs) 11/01/18 05:26: Sodium 139, Potassium 5.9 H*, BUN 107 H, Creatinine 5.29 H*, Glucose 223 H, Uric Acid 10.3 H D, Phosphorus 8.4 H 11/01/18 05:26: WBC 11.1 H D, Hgb 9.1 L, Hct 28.8 L, Plt Count 216 Medications List Reviewed: Yes Assessment And Plan - Current Problems (Diagnosis) (1) Bacterial pneumonia Current Visit: Yes Status: Acute Plan: I GAVE HIM BROAD [employer]OVERAGE NOT KNOWING ABOUT CLEAR BACTERIA. WILL STOP VANCOMYCIN. RESUME MERREM. HE IS HIGH RISK FOR POOR PROGNOSIS. HE HAS TOLD ME IN THE PAST THAT HE HAS NO INTEREST IN CONTROLLING HIS DIET FOR DM HE IS 88 AND WANTS GO TO EATING NORMALLY AND NOT FOR DIABETICS. IMPROVED CLINICALLY. REPEAT CXR. VANCOMYCIN TO CONTINUE. HE IS GROWING MRSA. CLINICALLY STABLE. (2) Diabetes Current Visit: No Status: Acute Plan: ABOVE POOR CONTROL. UNDERSTADING IS POOR. RAISE DOSE. Qualifiers: Diabetes mellitus type: type 2 Diabetes mellitus complication status: with circulatory complication Diabetes mellitus complication detail: with peripheral angiopathy without gangrene (3) Diabetic foot ulcer Onset Date: 03/24/18 Current Visit: No Status: Chronic Plan: NOT CURABLE. HE HAS RENAL FAILURE AND OSTEOMEYLITIS. HE IS NOT A CANDIDATE FOR STENTS OR BYPASS. HE MAY GO TO LTAC IF FAMILY WISHES BUT EVEN THERE WE WILL NOT BE ABLE TO SAVE HIS LEG. I WILL OFFER THIS TO HIM . RESUME IV MERREM. I TALKED TO PATIENT AND TODAY. I EXPLAINED THAT CHANCE OF IMPROVING THE ULCER ON R FOOT IS CLOSE TO ZERO. HE SHOULD GET AMPUATATION DONE. HE HAS DM, CKD, SEVERE PVD AND AGE AGAINST HIM. HE AGREES. HE CAN DO THIS AFTER HE IMPROVES REGARDING PNEUMONIA. MERREM TO CONTINUE HE HAS NECROTIC FOOT ULCER. I TALKED TO DR ROCA AND HE SAYS HE WILL NOT DO SURGERY UNTIL HE IS BETTER FROM [facility] CLINICALLY HE IS BETTER. TODAY ULCER IS EXTENDING INTO A LARGE GANGRENOUS ABSCESS. I CALLED DR JEROME TO GET AMPUTATION DONE HE IS GETTING WORSE. FAMILY IS READY. I CALLED AGAIN. IN HPI SURGERY IS URGENT AND MUST BE DONE. SP AMPUTATION STOP MERREM NOW. RESUME VANCOMYCIN FOR GRAM POS SEPTICEMIA. PROGNOSIS IS POOR. HE WILL GO TO IN BUT I AM NOT SURE IF HE WILL RECOVER. 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 (5) Gram positive sepsis Current Visit: Yes Status: Acute Plan: I DECIDED NOT TO GIVE HIM BOLUS CLINICALLY HE WOULD HAVE GOTTEN WORSE WITH MAJOR FLUID OVERLOAD. HE HAS CKD IN ADDITION TO OLD AGE. MRSA. SENSITIVE TO VANCOMYCIN. (6) CKD stage 4 due to type 2 diabetes mellitus Current Visit: Yes Status: Acute Plan: HE IN THE PAST ABOUT 3 YEARS AGO TOLD ME THAT HE DOES NOT CARE ABOUT DM OR COMPLICATIONS. HE WANTED TO JUST EAT WHATEVER HE WANTS AND ENJOY HIS LAST FEW YEARS. HE IS GETTING WORSE. IV LASIX IS GIVEN BY RENAL MD. TO CHANGE FROM OLIGURIC STATUS TO NONOLIGURIC STATUS. HE NEEDS DIALYSIS BUT AND SONS AGREE NOT TO HAVE IT DONE. HE IS 88. HE HAS LIVED FULL LIFE. HE DID NOT WANT THIS ACCORDING TO THEM. I OFFERED INPATIENT HOSPICE AND THEY WANT TO SIGN UP IN AM . HIS LIFE IS POSSIBLLY LESS THAN 5 DAYS. HE NEEDS COMFORT CARE TO AVOID END STAGE RESPIRATORY DISTRESS. (7) Anemia Current Visit: Yes Status: Acute Plan: POST OP. TRANSFUSE TWO UNITS. PROGNOSIS POOR WITH LETHARGY AND WORSE RENAL FUNCTION.
[2018-11-01] MEDS: ATORVASTATIN 10 MG TAB PO SCH (21:00)
[2018-11-01] MEDS: MORPHINE 2 MG/ML SYR IV PRN (21:30)
[2018-11-02] MEDS: MORPHINE 2 MG/ML SYR IV PRN ×3 (01:30→09:19)
[2018-11-02] MEDS: METOPROLOL XL 50 MG TAB PO SCH (03:33)
[2018-11-02] MEDS: PANTOPRAZOLE 40MG TABLET PO SCH (03:33)
[2018-11-02 08:16] VITALS: O2SAT 94
[2018-11-02] MEDS: BIMATOPROST OPTH SCH (09:00)
[2018-11-02] MEDS: COLLAGENASE 30 GM OINTMENT TOP SCH (09:00)
[2018-11-02] MEDS: CLOPIDOGREL 75 MG TABLET PO SCH (09:00)
[2018-11-02] MEDS: DORZOLAMIDE OPTH SCH (09:00)
[2018-11-02] MEDS: Brimonidine Tartrate/Timolol [Combigan 0.2%-0.5%] Eye Drops OPTH SCH (09:00)
[2018-11-02] MEDS: FUROSEMIDE 40 MG in NA CHLORIDE 0.9% 50 ML IV SCH (09:22)
[2018-11-02 10:26] VITALS: BP 138/46; TEMP 97.4
[2018-11-02] MEDS ORDERED: INSULIN -REGULAR HUMAN 50 UNIT/0.5 ML ML SQ SCH (12:00)
--- NOTE | 2018-11-02 12:57 | P.PN ---
Subjective Date of Service: 11/02/18 Chief Complaint: SP AMPUTATION Subjective: Worsening MR. YAN IS GETTING SOMEWHAT BETTER. HE HAS NO CHEST PAIN OR DYSPNEA. HE IS FATIGUED. HE HAS IMPROVED BUT STILL NOT BEFORE. HE IS STABLE BUT WEAK, SLEEPY. I SAW HIM TODAY IN OR. PREPARING FOR SURGERY, R BKA. HE IS HIGH RISK BUT FAMILY KNOWS AND HE KNOWS THAT HE HAS TO TAKE A RISK HIS FOOT HAS WET GANGRENE AND MAY GET RAPIDLY WORSE. SP R BKA . DR MARIN SAID THAT CIRCULATION IS VERY POOR AT THE STUMP AND IT MAY NOT HEAL. MR YNA IS NOT DOING WELL IN POST OP PERIOD HE HAS BEEN LETHARGIC. HE IS NOT ABLE TO WAKE UP SINCE YESTERDAY. HE IS COMATOSE. NOT ABLE TO BE AROUSED. Review of Systems is unable to be obtained Physical Examination - Vital Signs Temperature: 97.4 F Blood Pressure: 138/46 Pulse: 62 Respirations: 29 Pulse Ox (%): 93 - Physical Exam General: Comatose Respiratory: Diminished Other Physical/Emotional Findings: NO DEPRESSION, ANXIETY. - Studies Medications List Reviewed: Yes Assessment And Plan - Current Problems (Diagnosis) (1) Bacterial pneumonia Current Visit: Yes Status: Acute Plan: I GAVE HIM BROAD [employer]OVERAGE NOT KNOWING ABOUT CLEAR BACTERIA. WILL STOP VANCOMYCIN. RESUME MERREM. HE IS HIGH RISK FOR POOR PROGNOSIS. HE HAS TOLD ME IN THE PAST THAT HE HAS NO INTEREST IN CONTROLLING HIS DIET FOR DM HE IS 88 AND WANTS GO TO EATING NORMALLY AND NOT FOR DIABETICS. IMPROVED CLINICALLY. REPEAT CXR. VANCOMYCIN TO CONTINUE. HE IS GROWING MRSA. CLINICALLY STABLE. (2) Diabetes Current Visit: No Status: Acute Plan: ABOVE POOR CONTROL. UNDERSTADING IS POOR. RAISE DOSE. Qualifiers: Diabetes mellitus type: type 2 Diabetes mellitus complication status: with circulatory complication Diabetes mellitus complication detail: with peripheral angiopathy without gangrene (3) Diabetic foot ulcer Onset Date: 03/24/18 Current Visit: No Status: Chronic Plan: NOT CURABLE. HE HAS RENAL FAILURE AND OSTEOMEYLITIS. HE IS NOT A CANDIDATE FOR STENTS OR BYPASS. HE MAY GO TO LTAC IF FAMILY WISHES BUT EVEN THERE WE WILL NOT BE ABLE TO SAVE HIS LEG. I WILL OFFER THIS TO HIM . RESUME IV MERREM. I TALKED TO PATIENT AND TODAY. I EXPLAINED THAT CHANCE OF IMPROVING THE ULCER ON R FOOT IS CLOSE TO ZERO. HE SHOULD GET AMPUATATION DONE. HE HAS DM, CKD, SEVERE PVD AND AGE AGAINST HIM. HE AGREES. HE CAN DO THIS AFTER HE IMPROVES REGARDING PNEUMONIA. MERREM TO CONTINUE HE HAS NECROTIC FOOT ULCER. I TALKED TO DR ROCA AND HE SAYS HE WILL NOT DO SURGERY UNTIL HE IS BETTER FROM [facility] CLINICALLY HE IS BETTER. TODAY ULCER IS EXTENDING INTO A LARGE GANGRENOUS ABSCESS. I CALLED DR JEROME TO GET AMPUTATION DONE HE IS GETTING WORSE. FAMILY IS READY. I CALLED AGAIN. IN HPI SURGERY IS URGENT AND MUST BE DONE. SP AMPUTATION STOP MERREM NOW. RESUME VANCOMYCIN FOR GRAM POS SEPTICEMIA. PROGNOSIS IS POOR. HE WILL GO TO [place] BUT I AM NOT SURE IF HE WILL RECOVER. 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 (5) Gram positive sepsis Current Visit: Yes Status: Acute Plan: I DECIDED NOT TO GIVE HIM BOLUS CLINICALLY HE WOULD HAVE GOTTEN WORSE WITH MAJOR FLUID OVERLOAD. HE HAS CKD IN ADDITION TO OLD AGE. MRSA. SENSITIVE TO VANCOMYCIN. (6) CKD stage 4 due to type 2 diabetes mellitus Current Visit: Yes Status: Acute Plan: HE IN THE PAST ABOUT 3 YEARS AGO TOLD ME THAT HE DOES NOT CARE ABOUT DM OR COMPLICATIONS. HE WANTED TO JUST EAT WHATEVER HE WANTS AND ENJOY HIS LAST FEW YEARS. HE IS GETTING WORSE. IV LASIX IS GIVEN BY RENAL MD. TO CHANGE FROM OLIGURIC STATUS TO NONOLIGURIC STATUS. HE NEEDS DIALYSIS BUT AND SONS AGREE NOT TO HAVE IT DONE. HE IS 88. HE HAS LIVED FULL LIFE. HE DID NOT WANT THIS ACCORDING TO THEM. I OFFERED INPATIENT HOSPICE AND THEY WANT TO SIGN UP IN AM . HIS LIFE IS POSSIBLLY LESS THAN 5 DAYS. HE NEEDS COMFORT CARE TO AVOID END STAGE RESPIRATORY DISTRESS. RENAL FAILURE. MULTIPLE OTHER SERIOUS ISSUES. HOSPICE ADVISED. I BELIEVE THAT IS THE BEST OPTION FOR HIM HE WILL NOT SURVIVE. FAMILY WILL SIGN UP IN AM. TALKED TO SON TODAY. (7) Anemia Current Visit: Yes Status: Acute Plan: POST OP. TRANSFUSE TWO UNITS. PROGNOSIS POOR WITH LETHARGY AND WORSE RENAL FUNCTION.
--- NOTE | 2018-11-02 13:37 | P.PN ---
Subjective Date of Service: 11/02/18 Chief Complaint: SP AMPUTATION Subjective: Worsening lethargic on BIPAP pt with poor prognosis the risk of initiating dialysis outweigh the benefits, discussed with family at bedside hospice evaluation Physical Examination - Vital Signs Temperature: 97.4 F Blood Pressure: 138/46 Pulse: 62 Respirations: 29 Pulse Ox (%): 93 - Physical Exam General: Comatose HEENT: Atraumatic Neck: Supple, Without JVD or thyroid abnormality Respiratory: Clear to auscultation bilaterally, Other (on BiPAP) Cardiovascular: No edema, Regular rate/rhythm, Normal S1 S2 Gastrointestinal: Normal bowel sounds, Soft and benign Other Physical/Emotional Findings: NO DEPRESSION, ANXIETY. - Studies Medications List Reviewed: Yes Assessment And Plan - Current Problems (Diagnosis) (1) FIORELLA (acute kidney injury) Current Visit: Yes Status: Acute - Plan FIORELLA on CKD 4 the risk of initiating HD outweigh the benefits discussed with family at bedside and they agree likely 2/2 septic GN PVD s/p amputation still septic hyperkalemia cont lasix family refused HD sepsis over all poor prognosis
--- NOTE | 2018-11-03 06:32 | P.DS ---
Admission Date: 10/25/18 Discharge Date: 11/03/18 Disposition: HOSPICE-MEDICAL FACILITY Discharge Condition: SERIOUS Reason for Admission: SP AMPUTATION - Problems (1) Bacterial pneumonia Status: Acute (2) Diabetes Status: Acute Qualifiers: Diabetes mellitus type: type 2 Diabetes mellitus complication status: with circulatory complication Diabetes mellitus complication detail: with peripheral angiopathy without gangrene (3) Diabetic foot ulcer Onset Date: 03/24/18 Status: Chronic Qualifiers: Diabetic foot ulcer location: midfoot Diabetes mellitus type: type 2 Laterality: right Non-pressure ulcer stage: with bone involvement without evidence of necrosis Qualified Code(s): E11.621 - Type 2 diabetes mellitus with foot ulcer; L97.416 - 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 YAN COMES IN TO [facility] TODAY FOR HIS R FOOT. WE NOTED THAT HE WAS DYSPNEIC, SOMEWHAT CONFUSED, HAD LOW OXYGEN SATURATION OF 85%. I DID DIRECT ADMISSION WITH SUSPICION OF PNEUMONIA OR SEPSIS. HE IS PUT ON TWO ABX ALREADY. HE DENIES ANY CHEST PAIN. MR. YAN HAS END STAGE RENAL FAILURE FROM DM AND HTN. HE CAME WITH MRSA PNEUMONIA AND GRADUALLY HIS RENAL FAILURE GOT WORSE FROM STAGE 4 TO STAGE 5. HE IN THE PAST HAD SAID ABOUT NOT WANTING LIFE SUPPORT. HE BECAME COMATOSE WITH ACIDOSIS AND NOW HE IS ON HOSPICE PER HIS AND HIS FAMILY'S WISHES. HIS AND SONS DECIDED AGAINST DIALYSIS HE IS 88 AND IN A VERY POOR HEALTH. Vital Signs/Physical Exam: Temp Pulse Resp BP Pulse Ox 97.4 F 62 29 H 138/46 L 93 11/02/18 13:37 11/02/18 13:37 11/02/18 13:37 11/02/18 13:37 11/02/18 13:37 Other Physical/Emotional Findings: NO DEPRESSION, ANXIETY. Laboratory Data at Discharge: WBC 11.1 K/uL (4.3-10.9) H D 11/01/18 05:26 Hgb 9.1 g/dL (13.6-17.9) L 11/01/18 05:26 Hct 28.8 % (39.6-49.0) L 11/01/18 05:26 Plt Count 216 K/uL (152-406) 11/01/18 05:26 PT 12.8 SECONDS (9.5-12.5) H 10/29/18 07:50 INR 1.09 10/29/18 07:50 Sodium 139 mmol/L (136-145) 11/01/18 05:26 Potassium 5.9 mmol/L (3.5-5.1) H* 11/01/18 05:26 BUN 107 mg/dL (7-18) H 11/01/18 05:26 Creatinine 5.29 mg/dL (0.55-1.3) H* 11/01/18 05:26 Glucose 223 mg/dL (74-106) H 11/01/18 05:26 Uric Acid 10.3 mg/dL (3.5-7.2) H D 11/01/18 05:26 Phosphorus 8.4 mg/dL (2.5-4.9) H 11/01/18 05:26 Troponin I 0.03 ng/mL (0.0-0.045) 10/26/18 12:30 Home Medications: Aspirin [Aspir-Low] 81 mg PO DAILY 02/15/18 Clopidogrel Bisulfate [Plavix*] 75 mg PO DAILY 02/15/18 Furosemide [Lasix*] 40 mg PO SEECOM 02/15/18 Metoprolol Succinate [Toprol Xl] 50 mg PO BEDTIME 02/15/18 Simvastatin 20 mg PO BEDTIME 02/15/18 Tamsulosin [Flomax*] 0.4 mg PO DAILY 02/15/18 Brimonidine Tartrate/Timolol [Combigan 0.2%-0.5% Eye Drops] 1 drop OPTH BID 12/17 Insulin Glargine,Hum.rec.anlog [Lantus Solostar] 0 unit SQ BID 10/03/18 Insulin Lispro [Humalog] 0 unit SQ DAILY 10/03/18 Bimatoprost [Lumigan Opthalmic Drops*] 1 drop OPTH BID 10/25/18 Dorzolamide [Trusopt 2%*] 1 drop OPTH BID 10/25/18 Lutein/Zeaxanthin [Lutein-Zeaxanthin 20-1 mg Sfgl] 1 cap PO DAILY 10/26/18 Mv-Mn/Iron/FA/Herbal Cmplx#[id number] [Vitamin D3 Complete Caplet] 50 mcg PO DAILY
[2018-11-04 13:11] LABS: Hepatitis C Virus RNA (PCR)log <1.18 log IU/mL
[2018-11-04 15:35] LABS: HIV AG/AB 4TH GEN Non-reactive (Non-reactive)
[2018-11-04 21:18] LABS: Albumin, (SPE) 2.1 g/dL (3.8-4.8); Alpha-1-Globulins 0.5 g/dL (0.2-0.3); Alpha-2-Globulins 0.8 g/dL (0.5-0.9); INTERPRETATION REPORT
[2018-11-07 13:20] LABS: P-ANCA Anti-Myeloperoxidase Ab <1.0 AI (<1.0)
[2018-11-09 04:18] LABS: HBsAG Nonreactive (Nonreactive)
== END 2018-11-02 15:36 | disposition hospice, inpatient (51) | DRG 853 ==
LOC: 4TH 13:29
PROVIDERS: ADMIT Internal Medicine; ATTEND Internal Medicine
PROC: 0Y6H0Z1 Detachment at Right Lower Leg, High, Open Approach (ICD-10-PCS; principal; 2018-10-29 09:30)
PROC: 30233N1 Transfusion of Nonautologous Red Blood Cells into Peripheral Vein, Percutaneous Approach (ICD-10-PCS; 2018-10-30)
DX: A41.89 Other specified sepsis (principal); J15.212 Pneumonia due to Methicillin resistant Staphylococcus aureus; N17.0 Acute kidney failure with tubular necrosis; R40.20 Unspecified coma; L97.416 Non-pressure chronic ulcer of right heel and midfoot with bone involvement without evidence of necrosis; M86.171 Other acute osteomyelitis, right ankle and foot; N17.9 Acute kidney failure, unspecified; E11.52 Type 2 diabetes mellitus with diabetic peripheral angiopathy with gangrene; I96 Gangrene, not elsewhere classified; L02.611 Cutaneous abscess of right foot; D62 Acute posthemorrhagic anemia; L03.115 Cellulitis of right lower limb; E46 Unspecified protein-calorie malnutrition; E87.2 Acidosis; N18.5 Chronic kidney disease, stage 5; Z51.5 Encounter for palliative care; Z66 Do not resuscitate; Z79.4 Long term (current) use of insulin; E11.69 Type 2 diabetes mellitus with other specified complication; I12.9 Hypertensive chronic kidney disease with stage 1 through stage 4 chronic kidney disease, or unspecified chronic kidney disease; E11.22 Type 2 diabetes mellitus with diabetic chronic kidney disease; Z22.322 Carrier or suspected carrier of Methicillin resistant Staphylococcus aureus; I25.10 Atherosclerotic heart disease of native coronary artery without angina pectoris; Z95.1 Presence of aortocoronary bypass graft; Z95.5 Presence of coronary angioplasty implant and graft; Z87.891 Personal history of nicotine dependence; Z91.19 Patient's noncompliance with other medical treatment and regimen; N32.0 Bladder-neck obstruction; E87.5 Hyperkalemia; R40.4 Transient alteration of awareness
CPT/HCPCS: 36415; 36430; 71045; 76770; 78582; 80048; 80069; 80202; 81003; 81015; 82550; 82553; 82565; 82607; 82728; 82746; 82805; 82962; 83520; 83540; 83605; 83880; 83970; 84145; 84165; 84443; 84466; 84484; 84550; 85025; 85044; 85379; 85610; 86021; 86038; 86160; 86225; 86317; 86430; 86704; 86706; 86850; 86900; 86901; 87040; 87070; 87077; 87086; 87088; 87186; 87205; 87340; 87389; 87522; 88307; 88311; 93005; 93926; 93971; 94640; 94660; 94760; 97110; 97163; 97530; 99214; A9540; A9558; J0330; J0610; J1650; J1940; J2270; J2370; J2704; J2710; J3010; J3590; J7030; P9016

== ENCOUNTER 2018-11-02 15:51 | Inpatient (IN) | payer OTHER ==
--- OUTSIDE RECORDS SUMMARY | 2018-11-02 15:54 | XMS REPORT ---
:1930 [facility] Address [address] [place] [address] [address] [place] [address] Care Team Providers Name Role Phone Unavailable Unavailable Unavailable Problems This patient has no known problems. Allergies, Adverse Reactions, Alerts This patient has no known allergies or adverse reactions. Medications This patient has no known medications.
[2018-11-02] MEDS ORDERED: LORazepam 2 MG/ML VIAL IV PRN (16:12)
[2018-11-02] MEDS ORDERED: SCOPOLAMINE HYDROBROMIDE PATCH TD SCH (16:30)
[2018-11-02] MEDS: HYDROMORPHONE HCL 1 MG/ML INJ IV PRN ×4 (17:32→23:51)
[2018-11-02 20:01] LABS: Potassium 5.6 mmol/L (3.5-5.1)
[2018-11-02 20:21] LABS: Absolute Lymphocytes (CBC) 0.8 K/uL (0.7-4.9); Absolute Monocytes 0.7 K/uL (0.1-1.3); Absolute Neutrophil 11.3 K/uL (1.8-8.0); Basophils % 0.8 % (0-1.3); Eosinophils % 0.5 % (0-4.4); Hematocrit 28.6 % (39.6-49.0); Lymphocytes % 6.1 % (15.3-44.8); MPV 9.1 fL (7.6-11.3); Monocytes % 5.6 % (3.3-12.3); RBC Red Blood Cell Count 3.06 M/uL (4.33-5.43)
[2018-11-02 21:17] LABS: Blood Morphology Comment NOT SEEN (NOT SEEN); Platelet Estimate ADEQ
[2018-11-03] MEDS: HYDROMORPHONE HCL 1 MG/ML INJ IV PRN ×6 (01:44→13:12)
[2018-11-03 07:26] VITALS: O2SAT 76
[2018-11-03 09:21] VITALS: BP 81/25; TEMP 97.7
--- NOTE | 2018-11-03 20:49 | P.HP ---
Certification for Inpatient Patient admitted to: Inpatient With expected LOS: >2 Midnights Patient will require the following post-hospital care: Hospice Practitioner: I am a practitioner with admitting privileges, knowledge of patient current condition, hospital course, and medical plan of care. Services: Services provided to patient in accordance with Admission requirements found in Title 42 Section 412.3 of the Code of Federal Regulations Patient History Date of Service: 11/03/18 Reason for admission: HOSPICE FOR END STAGE RENAL FAILURE History of Present Illness: MR. 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 HE IS DISCHARGED FROM REGULAR ADMISSION AND CHANGED TO HOSPICE. HE IS EXPECTED TO LIVE LESS THAN COUPLE OF DAYS. Allergies ciprofloxacin [From Cipro] Allergy (Verified 10/25/18 14:27) Hives Home Medications: Aspirin [Aspir-Low] 81 mg PO DAILY 02/15/18 Clopidogrel Bisulfate [Plavix*] 75 mg PO DAILY 02/15/18 Furosemide [Lasix*] 40 mg PO SEECOM 02/15/18 Metoprolol Succinate [Toprol Xl] 50 mg PO BEDTIME 02/15/18 Simvastatin 20 mg PO BEDTIME 02/15/18 Tamsulosin [Flomax*] 0.4 mg PO DAILY 02/15/18 Brimonidine Tartrate/Timolol [Combigan 0.2%-0.5% Eye Drops] 1 drop OPTH BID 12/17 Insulin Glargine,Hum.rec.anlog [Lantus Solostar] 0 unit SQ BID 10/03/18 Insulin Lispro [Humalog] 0 unit SQ DAILY 10/03/18 Bimatoprost [Lumigan Opthalmic Drops*] 1 drop OPTH BID 10/25/18 Dorzolamide [Trusopt 2%*] 1 drop OPTH BID 10/25/18 Lutein/Zeaxanthin [Lutein-Zeaxanthin 20-1 mg Sfgl] 1 cap PO DAILY 10/26/18 Mv-Mn/Iron/FA/Herbal Cmplx#190 [Vitamin D3 Complete Caplet] 50 mcg PO DAILY - Past Medical/Surgical History Diabetic: Yes -: Diabetes- IDDM -: Renal disease -: GERD -: Carotid stents -: Femoral stents -: Quadrupal Bypass -: spinal surgery -: Cataracts -: HTN -: Right Foot Diabetic Ulcer -: spinal surgery -: Stents -: tonsil/adenoids - Family History Father -: Other (see notes) Notes: TB Mother -: Cancer Notes: Lymphoma - Social History Alcohol use: No CD- Drugs: No Caffeine use: Yes Review of Systems is unable to be obtained Physical Examination - Vital Signs Temperature: 97.7 F Blood Pressure: 81/25 Pulse: 51 Respirations: 12 Pulse Ox (%): 77 - Physical Exam General: Comatose Respiratory: Diminished Neurological: Other (NO RESPONSE TO PAINFUL STIMULUS AND NO PUPILLARY REACTION.) Assessment and Plan - Problems (Diagnosis) (1) ESRD (end stage renal disease) Current Visit: Yes Status: Acute Plan: MULTIFACTORIAL. DM, HTN, CAD, PVD, SEPSIS. MOST LIKELY WILL PASS IN A DAY OR SO. - Advance Directives Does patient have a Living Will: Yes Does patient have a Durable POA for Healthcare: No
--- NOTE | 2018-11-03 20:55 | P.DS ---
Admission Date: 11/02/18 Discharge Date: 11/03/18 Discharge Condition: Reason for Admission: HOSPICE FOR END STAGE RENAL FAILURE - Problems (1) ESRD (end stage renal disease) Current Visit: Yes Status: Acute Brief History of Present Illness: MR. 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 HE IS DISCHARGED FROM REGULAR ADMISSION AND CHANGED TO HOSPICE. HE IS EXPECTED TO LIVE LESS THAN COUPLE OF DAYS. MR. YAN AT 2:15 PM TODAY EXPECTED. Vital Signs/Physical Exam: Temp Pulse Resp BP Pulse Ox 97.7 F 51 12 81/25 L 77 L 11/03/18 20:49 11/03/18 20:49 11/03/18 20:49 11/03/18 20:49 11/03/18 20:49 Laboratory Data at Discharge: WBC 13.0 K/uL (4.3-10.9) H D 11/02/18 19:26 Hgb 9.3 g/dL (13.6-17.9) L 11/02/18 19:26 Hct 28.6 % (39.6-49.0) L 11/02/18 19:26 Plt Count 230 K/uL (152-406) 11/02/18 19:26 Sodium 139 mmol/L (136-145) 11/02/18 19:26 Potassium 5.6 mmol/L (3.5-5.1) H* 11/02/18 19:26 BUN 139 mg/dL (7-18) H D 11/02/18 19:26 Creatinine 6.60 mg/dL (0.55-1.3) H* D 11/02/18 19:26 Glucose 332 mg/dL (74-106) H 11/02/18 19:26 Home Medications: Aspirin [Aspir-Low] 81 mg PO DAILY 02/15/18 Clopidogrel Bisulfate [Plavix*] 75 mg PO DAILY 02/15/18 Furosemide [Lasix*] 40 mg PO SEECOM 02/15/18 Metoprolol Succinate [Toprol Xl] 50 mg PO BEDTIME 02/15/18 Simvastatin 20 mg PO BEDTIME 02/15/18 Tamsulosin [Flomax*] 0.4 mg PO DAILY 02/15/18 Brimonidine Tartrate/Timolol [Combigan 0.2%-0.5% Eye Drops] 1 drop OPTH BID 12/17 Insulin Glargine,Hum.rec.anlog [Lantus Solostar] 0 unit SQ BID 10/03/18 Insulin Lispro [Humalog] 0 unit SQ DAILY 10/03/18 Bimatoprost [Lumigan Opthalmic Drops*] 1 drop OPTH BID 10/25/18 Dorzolamide [Trusopt 2%*] 1 drop OPTH BID 10/25/18 Lutein/Zeaxanthin [Lutein-Zeaxanthin 20-1 mg Sfgl] 1 cap PO DAILY 10/26/18 Mv-Mn/Iron/FA/Herbal Cmplx#190 [Vitamin D3 Complete Caplet] 50 mcg PO DAILY
== END 2018-11-03 22:50 | disposition expired | DRG 951 ==
LOC: 4TH 15:51
PROVIDERS: ADMIT Internal Medicine; ATTEND Internal Medicine
DX: Z51.5 Encounter for palliative care (principal); N18.6 End stage renal disease; I12.0 Hypertensive chronic kidney disease with stage 5 chronic kidney disease or end stage renal disease; E11.22 Type 2 diabetes mellitus with diabetic chronic kidney disease
CPT/HCPCS: 36415; 80048; 85025; J1170